=== PATIENT | male | born 1955 | race Caucasian/White ===

== ENCOUNTER 2016-10-27 17:01 | Emergency (ER) | payer MEDICAID, OTHER ==
[2016-10-27] MEDS ORDERED: Sodium Chloride 0.9% 10 ML Syringe FLUSH PRN (17:26)
[2016-10-27] MEDS ORDERED: Sodium Chloride 0.9% 1,000 ML IV SCH (17:30)
--- NOTE | 2016-10-27 17:32 | EDM.PDOC ---
ED HPI GENERAL MEDICAL PROBLEM - General Chief Complaint: Chest Pain Stated Complaint: SOB Time Seen by Provider: 10/27/16 17:15 Source of Information: Reports: Patient History Limitations: Reports: No Limitations - History of Present Illness INITIAL COMMENTS - FREE TEXT/NARRATIVE: Pierce comes over from Dr Crawford office with a 24 hr hx of atypical lower anterior chest pains that have been slowly escalating today. Sxs began as a productive cough of green-yellow tinged sputa, with some chills last night, and sweats today. There is no yury SOB, palpitations, PND or PNA, GI upset or headaches. A chest x ray at the Clinic was interpreted as satisfactory. The 02 sat 92% prompted the ED visit for further evaluation. He has tried no meds. Chest Pain Score (Numeric/FACES): 4 - Related Data Allergies Allergy/AdvReac Type Severity Reaction Status Date / Time No Known Allergies Allergy Verified 10/27/16 17:10 Home Meds: Home Meds Aspirin [Adult Low Dose Aspirin EC] 81 mg PO DAILY 07/10/13 [History] Losartan Potassium 50 mg PO DAILY 07/10/13 [History] Azithromycin [Zithromax] 250 mg PO DAILY #5 tablet 10/27/16 [Rx] Carvedilol [Coreg] 1 tab PO DAILY 10/27/16 [History] Ibuprofen [Advil] 2 mg PO ASDIRECTED 10/27/16 [History] Nitroglycerin [Nitrostat] 1 tab SL ASDIRECTED 10/27/16 [History] Past Medical History Cardiovascular History: Reports: Hypertension Social & Family History - Tobacco Use Smoking Status *Q: Former Smoker Used Tobacco, but Quit: Yes Month Tobacco Last Used: 1975 - Caffeine Use Caffeine Use: Reports: Coffee - Alcohol Use Days Per Week of Alcohol Use: 6 Number of Drinks Per Day: 6 Total Drinks Per Week: 36 - Recreational Drug Use Recreational Drug Use: No ED ROS GENERAL - Review of Systems Review Of Systems: See Below Constitutional: Reports: No Symptoms, Chills, Night Sweats HEENT: Reports: No Symptoms Respiratory: Reports: Cough Cardiovascular: Reports: Chest Pain Endocrine: Reports: No Symptoms GI/Abdominal: Reports: No Symptoms : Reports: No Symptoms Musculoskeletal: Reports: No Symptoms Skin: Reports: No Symptoms Neurological: Reports: No Symptoms Psychiatric: Reports: No Symptoms Hematologic/Lymphatic: Reports: No Symptoms Immunologic: Reports: No Symptoms ED EXAM, GENERAL - Physical Exam Exam: See Below Exam Limited By: No Limitations General Appearance: Alert, WD/WN, No Apparent Distress, Anxious Eye Exam: Bilateral Eye: EOMI, PERRL Ears: Normal External Exam, Normal TMs Nose: Normal Inspection Throat/Mouth: Normal Inspection, Normal Lips, Normal Oropharynx, Normal Voice Head: Atraumatic, Normocephalic Neck: Normal Inspection, Supple, Non-Tender, Full Range of Motion Respiratory/Chest: No Respiratory Distress, Lungs Clear, Normal Breath Sounds, Other (chest tender at origin of both costal margins R>L) Cardiovascular: Normal Peripheral Pulses, Regular Rate, Rhythm, No Edema, No Murmur GI/Abdominal: Normal Bowel Sounds, Soft, Non-Tender, No Organomegaly, No Distention, No Mass (Male) Exam: No Hernia Back Exam: Normal Inspection Extremities: Normal Inspection, Normal Range of Motion, Non-Tender, No Pedal Edema Neurological: Alert, Oriented, CN II-XII Intact, Normal Cognition, Normal Gait, No Motor/Sensory Deficits Psychiatric: Normal Affect, Anxious Skin Exam: Warm, Dry Lymphatic: No Adenopathy Course - Vital Signs Text/Narrative:: Pierce continued some nonproductive coughing in the ED. His VS remained stable. His chest CT angio was negative for PE or pneumonia. Remaining labs were baseline, with D-dimer 464. Last Recorded V/S: Last Vital Signs Temp 37.1 C 10/27/16 17:13 Pulse 79 10/27/16 18:11 Resp 22 H 10/27/16 18:11 BP 145/84 H 10/27/16 18:11 Pulse Ox 92 L 10/27/16 18:11 - Orders/Labs/Meds Orders: Active Orders 24 hr Category Date Time Status EKG Documentation Completion [RC] ASDIRECTED Care 10/27/16 17:25 Active Ang Chest [CT] Stat Exams 10/27/16 17:24 Taken Sodium Chloride 0.9% [Normal Saline] 1,000 ml Med 10/27/16 17:30 Active IV ASDIRECTED Sodium Chloride 0.9% [Saline Flush] Med 10/27/16 17:26 Active 10 ml FLUSH ASDIRECTED PRN Peripheral IV Insertion Adult [OM.PC] Routine Oth 10/27/16 17:26 Ordered EKG 12 Lead [EK] Routine Ther 10/27/16 17:24 Ordered Medication Orders Sodium Chloride (Normal Saline) 1,000 mls @ 150 mls/hr IV ASDIRECTED SYLVIA Last Admin: 10/27/16 17:46 Dose: 150 mls/hr Sodium Chloride (Saline Flush) 10 ml FLUSH ASDIRECTED PRN PRN Reason: Keep Vein Open Labs: Laboratory Tests 10/27/16 10/27/16 10/27/16 Range/Units 17:40 17:40 17:40 WBC 5.7 (4.5-12.0) X10-3/uL RBC 4.91 (4.30-5.75) x10(6)uL Hgb 13.7 (11.5-15.5) g/dL Hct 41.0 (30.0-51.3) % MCV 83.6 (80-96) fL MCH 28.0 (27.7-33.6) pg MCHC 33.5 (32.2-35.4) g/dL RDW 13.5 (11.5-15.5) % Plt Count 175 (125-369) X10(3)uL MPV 7.9 (7.4-10.4) fL Add Manual Diff Yes Neutrophils % (Manual) 70 (46-82) % Band Neutrophils % 7 H (0-6) % Lymphocytes % (Manual) 15 (13-37) % Monocytes % (Manual) 8 (4-12) % D-Dimer, Quantitative 464 H (100-400) ng/mL Sodium 139 (135-145) mmol/L Potassium 3.9 (3.5-5.3) mmol/L Chloride 104 (100-110) mmol/L Carbon Dioxide 28 (23-29) mmol/L BUN 19 (8-23) mg/dL Creatinine 0.9 (0.6-1.3) mg/dL Est Cr Clr Drug Dosing 94.94 mL/min Estimated GFR (MDRD) > 60 (>60) BUN/Creatinine Ratio 21.1 H (9-20) Glucose 108 (80-116) mg/dL Calcium 9.0 (8.6-10.2) mg/dL Total Bilirubin 0.9 (0.1-1.3) mg/dL AST 20 (5-27) IU/L ALT 23 (14-26) IU/L Alkaline Phosphatase 86 (56-112) IU/L Troponin I (0.02-0.06) NG/ML Total Protein 8.7 H (6.0-8.0) g/dL Albumin 4.1 (3.2-4.6) g/dL Globulin 4.6 g/dL Albumin/Globulin Ratio 0.9 07/10/17 Range/Units 17:40 WBC (4.5-12.0) X10-3/uL RBC (4.30-5.75) x10(6)uL Hgb (11.5-15.5) g/dL Hct (30.0-51.3) % MCV (80-96) fL MCH (27.7-33.6) pg MCHC (32.2-35.4) g/dL RDW (11.5-15.5) % Plt Count (125-369) X10(3)uL MPV (7.4-10.4) fL Add Manual Diff Neutrophils % (Manual) (46-82) % Band Neutrophils % (0-6) % Lymphocytes % (Manual) (13-37) % Monocytes % (Manual) (4-12) % D-Dimer, Quantitative (100-400) ng/mL Sodium (135-145) mmol/L Potassium (3.5-5.3) mmol/L Chloride (100-110) mmol/L Carbon Dioxide (23-29) mmol/L BUN (8-23) mg/dL Creatinine (0.6-1.3) mg/dL Est Cr Clr Drug Dosing mL/min Estimated GFR (MDRD) (>60) BUN/Creatinine Ratio (9-20) Glucose (80-116) mg/dL Calcium (8.6-10.2) mg/dL Total Bilirubin (0.1-1.3) mg/dL AST (5-27) IU/L ALT (14-26) IU/L Alkaline Phosphatase (56-112) IU/L Troponin I < 0.01 L (0.02-0.06) NG/ML Total Protein (6.0-8.0) g/dL Albumin (3.2-4.6) g/dL Globulin g/dL Albumin/Globulin Ratio Meds: Medications Generic Name Dose Route Start Last Admin Trade Name Freq PRN Reason Stop Dose Admin Sodium Chloride 1,000 mls @ 150 mls/hr 10/27/16 17:30 10/27/16 17:46 Normal Saline IV 150 mls/hr ASDIRECTED SYLVIA Administration Sodium Chloride 10 ml 10/27/16 17:26 Saline Flush FLUSH ASDIRECTED PRN Keep Vein Open Discontinued Medications Generic Name Dose Route Start Last Admin Trade Name Freq PRN Reason Stop Dose Admin Iopamidol 100 ml 10/27/16 18:03 10/27/16 18:27 Isovue-370 (76%) IV 10/27/16 18:04 83 ml . DIRECTED ONE Administration Departure - Departure Time of Disposition: 19:07 Disposition: Home, Self-Care 01 Condition: Good Clinical Impression: Bronchitis, Atypical chest pain - Discharge Information Prescriptions: Azithromycin [Zithromax] 250 mg PO DAILY #5 tablet Forms: ED Department Discharge - Problem List & Annotations (1) Atypical chest pain SNOMED Code(s): 778122631 Code(s): R07.89 - OTHER CHEST PAIN Status: Acute Current Visit: Yes Annotation/Comment:: Manage chest wall pain with NSAIDs as tolerated. (2) Bronchitis SNOMED Code(s): 38523429 Code(s): J40 - BRONCHITIS, NOT SPECIFIED ACUTE OR CHRONIC Status: Acute Current Visit: Yes Annotation/Comment:: I dispensed a Z Ranulfo taken as directed for probable bronchitis, advised cough med of choice, hydration, and follow up if needed. - Problem List Review Problem List Initiated/Reviewed/Updated: Yes - My Orders Last 24 Hours: My Active Orders 10/27/16 17:24 Ang Chest [CT] Stat EKG 12 Lead [EK] Routine 10/27/16 17:25 EKG Documentation Completion [RC] ASDIRECTED 10/27/16 17:26 Sodium Chloride 0.9% [Saline Flush] 10 ml FLUSH ASDIRECTED PRN Peripheral IV Insertion Adult [OM.PC] Routine 10/27/16 17:30 Sodium Chloride 0.9% [Normal Saline] 1,000 ml IV ASDIRECTED - Assessment/Plan Last 24 Hours: My Active Orders 10/27/16 17:24 Ang Chest [CT] Stat EKG 12 Lead [EK] Routine 10/27/16 17:25 EKG Documentation Completion [RC] ASDIRECTED 10/27/16 17:26 Sodium Chloride 0.9% [Saline Flush] 10 ml FLUSH ASDIRECTED PRN Peripheral IV Insertion Adult [OM.PC] Routine 10/27/16 17:30 Sodium Chloride 0.9% [Normal Saline] 1,000 ml IV ASDIRECTED Plan: Follow up with PCP if needed.
[2016-10-27] MEDS ORDERED: Iopamidol 755 Mg/ML 100 ML Bottle IV ONE (18:03)
[2016-10-27] MEDS ORDERED: Azithromycin 250 MG Tab PO ONE (19:05)
[2016-10-27 19:36] VITALS: BP 168/88
--- NOTE | 2016-10-28 10:49 | CT ---
INDICATION: Cough, atypical chest pain, no shortness of breath, D-dimer 464. COMPUTERIZED TOMOGRAPHY ANGIOGRAPHY OF THE CHEST FOR PULMONARY ARTERIES: Spiral 1.25-mm axial sections were obtained through the chest with 83 mL Isovue- 370 at 3.3 mL per second, with sagittal and coronal reconstructions, 2016. No comparison study was available. Total Exam DLP = 1078.01 mGy-cm. A definite active infiltrate or effusion was not identified. There may be some mild bronchiectasis. No evidence of pulmonary emboli could be identified. A mild degree of mediastinal lymphadenopathy is noted which is nonspecific. Calcifications are noted in brachiocephalic vessels and the aorta. The heart appears somewhat enlarged. The adrenal glands appear to be essentially normal. Renal fascial thickening is noted, suggesting a mild degree of renal cortical scarring. No gallstones are demonstrated. The pancreas has a post surgical appearance, suggesting resection of the tail of the pancreas. This should be correlated clinically. It may represent a normal variant. IMPRESSION: 1. No evidence of pulmonary emboli. 2. No definite acute process in the chest. 3. ASHD/ASD. 4. Renal cortical scarring of mild degree. 5. Unusual appearance of the tail of the pancreas may be post surgical. Report was called to Dr. Wen at 1904 hours, 10/27/2016. [facility]
== END 2016-10-27 19:30 | disposition home or self-care (01) ==
LOC: FB.ED 17:01
DX: J40 Bronchitis, not specified as acute or chronic (principal); R07.89 Other chest pain; Z79.82 Long term (current) use of aspirin; Z79.899 Other long term (current) drug therapy; Z87.891 Personal history of nicotine dependence
CPT/HCPCS: 36415; 71275; 80053; 84484; 85025; 85379; 93005; 96360; 99285; A9270; J7040; Q9967

== ENCOUNTER 2017-02-17 09:59 | Inpatient (IN) | payer MEDICAID ==
[2017-02-17] MEDS ORDERED: Sodium Chloride 0.9% 10 ML Syringe FLUSH PRN (10:08)
[2017-02-17] MEDS ORDERED: HYDROmorphone 2 MG/ML SDV IVPUSH STA (10:14)
[2017-02-17] MEDS ORDERED: Piperacillin/Tazobactam 3.375 GM in Sodium Chloride 0.9% 50 ML IV SCH ×2 (10:15→17:00)
[2017-02-17] MEDS ORDERED: Sodium Chloride 0.9% 1,000 ML IV SCH (10:15)
[2017-02-17] MEDS ORDERED: Piperacillin/Tazobactam 3.375 GM in Sodium Chloride 0.9% 50 ML IV STA (10:16)
[2017-02-17] MEDS ORDERED: Iopamidol 755 MG/ML 150 ML Bottle IV ONE (11:08)
--- NOTE | 2017-02-17 12:16 | EDM.PDOC ---
ED HPI GENERAL MEDICAL PROBLEM - General Chief Complaint: Abdominal Pain Stated Complaint: LOWER RT ABDOMINAL PAIN Time Seen by Provider: 02/17/17 09:59 Source of Information: Reports: Patient, Family History Limitations: Reports: No Limitations - History of Present Illness INITIAL COMMENTS - FREE TEXT/NARRATIVE: 61 years old w m s/p L ankle surgery, came to the ed with his family, by PC wheelchair, due to sudden onset of right lower quadrant abd. pain at 3 am and agian at 7.30 am. No trauma. No N/V/D no dizziness. Pain is better at rest in supine position. No F/C/N/V. Pain is localized at his RLQ of abdomen. No other acute medical issues. BP 189/102 pulse 85 temp 37.5 RR 20 Pulse ox 96 Onset: Today Onset Date: 02/17/17 Onset Time: 09:00 Duration: Minutes: Location: Reports: Abdomen (RLQ of abdomen with rebound) Front/Back Body Image: 1 - RLQ of abdomen Quality: Reports: Burning, Dull, Stabbing, Throbbing Severity: Moderate Improves with: Reports: Rest Worsens with: Reports: Movement Context: Reports: Other (Sudden onset of RLQ abd. pain) Associated Symptoms: Reports: Loss of Appetite (epigastric tenderness) Right Lower Abdomen Pain Score (Numeric/FACES): 10 - Related Data Allergies Allergy/AdvReac Type Severity Reaction Status Date / Time No Known Allergies Allergy Verified 10/27/16 17:10 Home Meds: Home Meds Aspirin [Adult Low Dose Aspirin EC] 81 mg PO DAILY 07/10/13 [History] Losartan Potassium 50 mg PO DAILY 07/10/13 [History] Carvedilol [Coreg] 1 tab PO DAILY 10/27/16 [History] Ibuprofen [Advil] 400 mg PO ASDIRECTED 10/27/16 [History] Nitroglycerin [Nitrostat] 1 tab SL ASDIRECTED 10/27/16 [History] Past Medical History Cardiovascular History: Reports: Hypertension Social & Family History - Tobacco Use Smoking Status *Q: Former Smoker Used Tobacco, but Quit: Yes Month Tobacco Last Used: 1976 - Caffeine Use Caffeine Use: Reports: Coffee - Alcohol Use Days Per Week of Alcohol Use: 6 Number of Drinks Per Day: 6 Total Drinks Per Week: 36 - Recreational Drug Use Recreational Drug Use: No ED ROS GENERAL - Review of Systems Review Of Systems: See Below Constitutional: Reports: No Symptoms HEENT: Reports: No Symptoms Respiratory: Reports: No Symptoms Cardiovascular: Reports: No Symptoms Endocrine: Reports: No Symptoms GI/Abdominal: Reports: Abdominal Pain (RLQ abd. pain, epigastric pain) : Reports: No Symptoms Musculoskeletal: Reports: No Symptoms Skin: Reports: No Symptoms Neurological: Reports: No Symptoms Psychiatric: Reports: No Symptoms Hematologic/Lymphatic: Reports: No Symptoms Immunologic: Reports: No Symptoms ED EXAM, GI/ABD - Physical Exam Exam: See Below Exam Limited By: No Limitations General Appearance: Alert, WD/WN, Moderate Distress Eyes: Bilateral: Normal Appearance Ears: Normal External Exam Nose: Normal Inspection, Normal Mucosa Throat/Mouth: Normal Inspection, Normal Lips Head: Atraumatic, Normocephalic Neck: Normal Inspection, Supple, Non-Tender Respiratory/Chest: No Respiratory Distress, Lungs Clear, Normal Breath Sounds Cardiovascular: Normal Peripheral Pulses, Regular Rate, Rhythm, No Edema, No Gallop, No JVD, No Murmur GI/Abdominal Exam: No Organomegaly, No Distention, Tender (RLQ of abdomen, epigasric tenderness), Abnormal Bowel Sounds (Male) Exam: No Hernia Rectal (Males) Exam: Deferred Back Exam: Normal Inspection, Full Range of Motion Extremities: Normal Inspection, Normal Range of Motion Neurological: Alert, Oriented, CN II-XII Intact, Normal Cognition, No Motor/ Sensory Deficits, Other (came by Wheelchair) Psychiatric: Normal Affect, Normal Mood Skin Exam: Warm, Dry, Intact, Normal Color, No Rash Lymphatic: No Adenopathy Course - Vital Signs Text/Narrative:: 61 years old w m s/p L ankle surgery, came to the ed with his family, by PC wheelchair, due to sudden onset of right lower quadrant abd. pain at 3 am and agian at 7.30 am. No trauma. No N/V/D no dizziness. Pain is better at rest in supine position. No F/C/N/V. Pain is localized at his RLQ of abdomen. No other acute medical issues. BP 189/102 pulse 85 temp 37.5 RR 20 Pulse ox 96 last food intake 9 am PE: WNWD W F with RLQ abd > epigastric tenderness Labs: INR 1.08 WBC 10.3 HGB 14.8 Na 138 K 3.8 GFR > 60 BUN 15 Cr. 0.9 Glc 126 Imaging: Acute appy Impression: Acute appy, Gastritis Tx: Zosyn, Dilaudid 12.14. pm Consultation Dr. Wood, Surgeon: Will see the Pt in the ED, surgery planned for 2.[address] Wood took over the care. Last Recorded V/S: Last Vital Signs Temp 38.2 C H 02/17/17 14:39 Pulse 91 02/17/17 14:39 Resp 20 02/17/17 14:05 BP 157/82 H 02/17/17 14:39 Pulse Ox 94 L 02/17/17 14:39 - Orders/Labs/Meds Orders: Active Orders 24 hr Category Date Time Status Abdomen Pelvis w Cont [CT] Stat Exams 02/17/17 10:06 Taken CXR [Chest 1V Frontal] [CR] Routine Exams 02/17/17 14:30 Ordered Sodium Chloride 0.9% [Normal Saline] 1,000 ml Med 02/17/17 10:15 Active IV ASDIRECTED Sodium Chloride 0.9% [Saline Flush] Med 02/17/17 10:08 Active 10 ml FLUSH ASDIRECTED PRN Peripheral IV Insertion Adult [OM.PC] Routine Oth 02/17/17 10:08 Ordered EKG 12 Lead [EK] Routine Ther 02/17/17 13:20 Ordered Medication Orders Sodium Chloride (Normal Saline) 1,000 mls @ 125 mls/hr IV ASDIRECTED SYLVIA Last Infusion: 02/17/17 14:03 Dose: 125 mls/hr Admin: 02/17/17 11:05 Dose: 125 mls/hr Sodium Chloride (Saline Flush) 10 ml FLUSH ASDIRECTED PRN PRN Reason: Keep Vein Open Labs: Laboratory Tests 02/17/17 02/17/17 02/17/17 Range/Units 10: 10: 10:17 WBC 10.8 (4.5-12.0) X10-3/uL RBC 5.20 (4.30-5.75) x10(6)uL Hgb 14.3 (11.5-15.5) g/dL Hct 43.1 (30.0-51.3) % MCV 82.8 (80-96) fL MCH 27.5 L (27.7-33.6) pg MCHC 33.2 (32.2-35.4) g/dL RDW 14.5 (11.5-15.5) % Plt Count 177 (125-369) X10(3)uL MPV 8.4 (7.4-10.4) fL Neut % (Auto) 79.9 (46-82) % Lymph % (Auto) 11.4 L (13-37) % Fleming % (Auto) 6.2 (4-12) % Eos % (Auto) 1 (1.0-5.0) % Baso % (Auto) 2 (0-2) % Neut # (Auto) 8.6 H (1.6-8.3) # Lymph # (Auto) 1.2 (0.6-5.0) # Fleming # (Auto) 0.7 (0.0-1.3) # Eos # (Auto) 0.1 (0.0-0.8) # Baso # (Auto) 0.2 (0.0-0.2) # PT 10.9 (8.7-11.1) INR 1.08 (0.89-1.13) Sodium 137 (135-145) mmol/L Potassium 3.8 (3.5-5.3) mmol/L Chloride 101 (100-110) mmol/L Carbon Dioxide 29 (23-29) mmol/L BUN 15 (8-23) mg/dL Creatinine 0.9 (0.6-1.3) mg/dL Est Cr Clr Drug Dosing TNP Estimated GFR (MDRD) > 60 (>60) BUN/Creatinine Ratio 16.7 (9-20) Glucose 139 H (80-116) mg/dL Calcium 8.9 (8.6-10.2) mg/dL Total Bilirubin 1.5 H (0.1-1.3) mg/dL Direct Bilirubin 0.2 (0.1-0.2) mg/dL AST 18 (5-27) IU/L ALT 23 (14-26) IU/L Alkaline Phosphatase 81 (56-112) IU/L NT-Pro-B Natriuret Pep 113 (5-125) pg/mL Total Protein 7.7 (6.0-8.0) g/dL Albumin 3.8 (3.2-4.6) g/dL Amylase 26 L (28-100) U/L Urine Color (YELLOW) Urine Appearance (CLEAR) Urine pH (5.0-6.5) Ur Specific Randolph (1.010-1.025) Urine Protein (NEGATIVE) mg/dL Urine Glucose (UA) (NEGATIVE) mg/dL Urine Ketones (NEGATIVE) mg/dL Urine Occult Blood (NEGATIVE) Urine Nitrite (NEGATIVE) Urine Bilirubin (NEGATIVE) Urine Urobilinogen (NEGATIVE) mg/dL Ur Leukocyte Esterase (NEGATIVE) Urine RBC (0) Urine WBC (0) Ur Squamous Epith Cells (NS,R,O) Urine Bacteria (NS) 02/17/17 Range/Units 13:00 WBC (4.5-12.0) X10-3/uL RBC (4.30-5.75) x10(6)uL Hgb (11.5-15.5) g/dL Hct (30.0-51.3) % MCV (80-96) fL MCH (27.7-33.6) pg MCHC (32.2-35.4) g/dL RDW (11.5-15.5) % Plt Count (125-369) X10(3)uL MPV (7.4-10.4) fL Neut % (Auto) (46-82) % Lymph % (Auto) (13-37) % Fleming % (Auto) (4-12) % Eos % (Auto) (1.0-5.0) % Baso % (Auto) (0-2) % Neut # (Auto) (1.6-8.3) # Lymph # (Auto) (0.6-5.0) # Fleming # (Auto) (0.0-1.3) # Eos # (Auto) (0.0-0.8) # Baso # (Auto) (0.0-0.2) # PT (8.7-11.1) INR (0.89-1.13) Sodium (135-145) mmol/L Potassium (3.5-5.3) mmol/L Chloride (100-110) mmol/L Carbon Dioxide (23-29) mmol/L BUN (8-23) mg/dL Creatinine (0.6-1.3) mg/dL Est Cr Clr Drug Dosing Estimated GFR (MDRD) (>60) BUN/Creatinine Ratio (9-20) Glucose (80-116) mg/dL Calcium (8.6-10.2) mg/dL Total Bilirubin (0.1-1.3) mg/dL Direct Bilirubin (0.1-0.2) mg/dL AST (5-27) IU/L ALT (14-26) IU/L Alkaline Phosphatase (56-112) IU/L NT-Pro-B Natriuret Pep (5-125) pg/mL Total Protein (6.0-8.0) g/dL Albumin (3.2-4.6) g/dL Amylase (28-100) U/L Urine Color Yellow (YELLOW) Urine Appearance Clear (CLEAR) Urine pH 5.0 (5.0-6.5) Ur Specific Randolph 1.010 (1.010-1.025) Urine Protein Negative (NEGATIVE) mg/dL Urine Glucose (UA) Normal (NEGATIVE) mg/dL Urine Ketones Negative (NEGATIVE) mg/dL Urine Occult Blood Negative (NEGATIVE) Urine Nitrite Negative (NEGATIVE) Urine Bilirubin Negative (NEGATIVE) Urine Urobilinogen Normal (NEGATIVE) mg/dL Ur Leukocyte Esterase Negative (NEGATIVE) Urine RBC 0-5 (0) Urine WBC 0-5 (0) Ur Squamous Epith Cells Few H (NS,R,O) Urine Bacteria Few H (NS) Meds: Medications Generic Name Dose Route Start Last Admin Trade Name Freq PRN Reason Stop Dose Admin Sodium Chloride 1,000 mls @ 125 mls/hr 02/17/17 10:15 02/17/17 14:03 Normal Saline IV 125 mls/hr ASDIRECTED SYLVIA Infusion Sodium Chloride 10 ml 02/17/17 10:08 Saline Flush FLUSH ASDIRECTED PRN Keep Vein Open Discontinued Medications Generic Name Dose Route Start Last Admin Trade Name Freq PRN Reason Stop Dose Admin Hydromorphone HCl 1 mg 02/17/17 10:14 02/17/17 11:06 Dilaudid IVPUSH 02/17/17 10:15 1 mg ONETIME STA Administration Piperacillin Sod/Tazobactam 50 mls @ 100 mls/hr 02/17/17 10:15 Sod 3.375 gm/ Sodium Chloride IV Q6H SYLVIA Piperacillin Sod/Tazobactam 50 mls @ 100 mls/hr 02/17/17 10:16 02/17/17 11:44 Sod 3.375 gm/ Sodium Chloride IV 02/17/17 10:45 100 mls/hr Q6H STA Administration Cefoxitin Sodium 2 gm/ Sodium 100 mls @ 200 mls/hr 02/17/17 12:48 02/17/17 13 :27 Chloride IV 02/17/17 13:17 200 mls/hr ONETIME ONE Administration Iopamidol 150 ml 02/17/17 11:08 02/17/17 11:33 Isovue-370 (76%) IV 02/17/17 11:09 130 ml ONETIME ONE Administration Departure - Departure Time of Disposition: 14:00 Disposition: Refer to Observation Condition: Fair Clinical Impression: Acute appendicitis Qualifiers: Acute appendicitis type: unspecified acute appendicitis type Qualified Code(s) : K35.80 - Unspecified acute appendicitis - Discharge Information - My Orders Last 24 Hours: My Active Orders 02/17/17 10:06 Abdomen Pelvis w Cont [CT] Stat 02/17/17 10:08 Sodium Chloride 0.9% [Saline Flush] 10 ml FLUSH ASDIRECTED PRN Peripheral IV Insertion Adult [OM.PC] Routine 02/17/17 10:15 Sodium Chloride 0.9% [Normal Saline] 1,000 ml IV ASDIRECTED 02/17/17 14:30 CXR [Chest 1V Frontal] [CR] Routine - Assessment/Plan Last 24 Hours: My Active Orders 02/17/17 10:06 Abdomen Pelvis w Cont [CT] Stat 02/17/17 10:08 Sodium Chloride 0.9% [Saline Flush] 10 ml FLUSH ASDIRECTED PRN Peripheral IV Insertion Adult [OM.PC] Routine 02/17/17 10:15 Sodium Chloride 0.9% [Normal Saline] 1,000 ml IV ASDIRECTED 02/17/17 14:30 CXR [Chest 1V Frontal] [CR] Routine
[2017-02-17] MEDS ORDERED: cefOXitin 2 GM in Sodium Chloride 0.9% 100 ML IV ONE (12:48)
--- NOTE | 2017-02-17 12:48 | PCM.HP ---
H&P History of Present Illness - General Date of Service: 02/17/17 Source of Information: Patient History Limitations: Reports: No Limitations - History of Present Illness Onset of Symptoms: Reports: Today Duration of Symptoms: Reports: Hour(s): (9) Location: Reports: Abdomen Quality: Reports: Pressure, Sharp Severity: Moderate Improves with: Reports: Other (much better after Dilaudid) Worsens with: Reports: Movement Associated Symptoms: Reports: No Other Symptoms. Denies: Nausea/Vomiting - Related Data Allergies/Adverse Reactions: Allergies Allergy/AdvReac Type Severity Reaction Status Date / Time No Known Allergies Allergy Verified 10/27/16 17:10 Home Medications: Home Meds Aspirin [Adult Low Dose Aspirin EC] 81 mg PO DAILY 07/10/13 [History] Losartan Potassium 50 mg PO DAILY 07/10/13 [History] Carvedilol [Coreg] 1 tab PO DAILY 10/27/16 [History] Ibuprofen [Advil] 400 mg PO ASDIRECTED 10/27/16 [History] Nitroglycerin [Nitrostat] 1 tab SL ASDIRECTED 10/27/16 [History] Past Medical History Cardiovascular History: Reports: Hypertension Other Musculoskeletal History: Back Surgery Social & Family History - Tobacco Use Smoking Status *Q: Former Smoker Used Tobacco, but Quit: Yes Month Tobacco Last Used: 1975 - Caffeine Use Caffeine Use: Reports: Coffee - Alcohol Use Days Per Week of Alcohol Use: 6 Number of Drinks Per Day: 6 Total Drinks Per Week: 36 - Recreational Drug Use Recreational Drug Use: No H&P Review of Systems - Review of Systems: Review Of Systems: See Below General: Denies: Fever, Chills HEENT: Reports: No Symptoms Pulmonary: Reports: No Symptoms Cardiovascular: Reports: No Symptoms Gastrointestinal: Reports: Abdominal Pain Exam - Exam Exam: See Below - Exam General: Alert, Oriented Lungs: Clear to Auscultation, Normal Respiratory Effort Cardiovascular: Regular Rate, Regular Rhythm GI/Abdominal Exam: Soft, Tender (in RLQ), Hernia (Umbilical) - Patient Data Lab Results Last 24 hrs: Laboratory Results - last 24 hr 02/17/17 02/17/17 02/17/17 Range/Units 10: 10: 10: WBC 10.8 (4.5-12.0) X10-3/uL RBC 5.20 (4.30-5.75) x10(6)uL Hgb 14.3 (11.5-15.5) g/dL Hct 43.1 (30.0-51.3) % MCV 82.8 (80-96) fL MCH 27.5 L (27.7-33.6) pg MCHC 33.2 (32.2-35.4) g/dL RDW 14.5 (11.5-15.5) % Plt Count 177 (125-369) X10(3)uL MPV 8.4 (7.4-10.4) fL Neut % (Auto) 79.9 (46-82) % Lymph % (Auto) 11.4 L (13-37) % [place] % (Auto) 6.2 (4-12) % Eos % (Auto) 1 (1.0-5.0) % Baso % (Auto) 2 (0-2) % Neut # (Auto) 8.6 H (1.6-8.3) # Lymph # (Auto) 1.2 (0.6-5.0) # [place] # (Auto) 0.7 (0.0-1.3) # Eos # (Auto) 0.1 (0.0-0.8) # Baso # (Auto) 0.2 (0.0-0.2) # PT 10.9 (8.7-11.1) INR 1.08 (0.89-1.13) Sodium 137 (135-145) mmol/L Potassium 3.8 (3.5-5.3) mmol/L Chloride 101 (100-110) mmol/L Carbon Dioxide 29 (23-29) mmol/L BUN 15 (8-23) mg/dL Creatinine 0.9 (0.6-1.3) mg/dL Est Cr Clr Drug Dosing TNP Estimated GFR (MDRD) > 60 (>60) BUN/Creatinine Ratio 16.7 (9-20) Glucose 139 H (80-116) mg/dL Calcium 8.9 (8.6-10.2) mg/dL Total Bilirubin 1.5 H (0.1-1.3) mg/dL Direct Bilirubin 0.2 (0.1-0.2) mg/dL AST 18 (5-27) IU/L ALT 23 (14-26) IU/L Alkaline Phosphatase 81 (56-112) IU/L NT-Pro-B Natriuret Pep 113 (5-125) pg/mL Total Protein 7.7 (6.0-8.0) g/dL Albumin 3.8 (3.2-4.6) g/dL Amylase 26 L (28-100) U/L Result Diagrams: 02/17/17 10:17 02/17/17 10:17 Imaging Impressions Last 24 hrs: CT shows acute appendicitis *Q Meaningful Use (ADM) - VTE *Q VTE Criteria *Q: - Stroke *Q Stroke Criteria *Q: - AMI *Q AMI Criteria *Q: - Problem List (1) Appendicitis, acute SNOMED Code(s): 96486023 ICD Code: K35.80 - UNSPECIFIED ACUTE APPENDICITIS Status: Acute Current Visit: Yes Qualifiers: Acute appendicitis type: unspecified acute appendicitis type Qualified Code (s): K35.80 - Unspecified acute appendicitis Problem List Initiated/Reviewed/Updated: Yes Orders Last 24hrs: Active Orders 24 hr Category Date Time Status Abdomen Pelvis w Cont [CT] Stat Exams 02/17/17 10:06 Taken UA W/MICROSCOPIC [URIN] Stat Lab 02/17/17 10:06 Uncollected Sodium Chloride 0.9% [Normal Saline] 1,000 ml Med 02/17/17 10:15 Active IV ASDIRECTED Sodium Chloride 0.9% [Saline Flush] Med 02/17/17 10:08 Active 10 ml FLUSH ASDIRECTED PRN Peripheral IV Insertion Adult [OM.PC] Routine Oth 02/17/17 10:08 Ordered Medication Orders Sodium Chloride (Normal Saline) 1,000 mls @ 125 mls/hr IV ASDIRECTED [facility] Last Admin: 02/17/17 11:05 Dose: 125 mls/hr Sodium Chloride (Saline Flush) 10 ml FLUSH ASDIRECTED PRN PRN Reason: Keep Vein Open Assessment/Plan Comment:: Acute Appendicitis Umbilical Hernia Will proceed with lap appy and hernia repair. Discussed procedure, risks and complications. Consent obtained
[2017-02-17] MEDS ORDERED: Midazolam 1 MG/ML 2 ML SDV IV ONE (14:55)
[2017-02-17] MEDS ORDERED: Ondansetron 4 MG/2 ML SDV IVPUSH ONE (14:55)
[2017-02-17] MEDS ORDERED: Citric Acid/Sodium Citrate Solution 30 ML Cup PO ONE (14:55)
[2017-02-17] MEDS ORDERED: Propofol 200 MG/20 ML SDV IV ONE (14:55)
[2017-02-17] MEDS ORDERED: fentaNYL 100 MCG/2 ML SDV IV ONE (14:55)
[2017-02-17] MEDS ORDERED: Lactated Ringers 1,000 ML IV ONE (14:55)
[2017-02-17] MEDS ORDERED: Rocuronium Bromide 50 MG/5 ML Syringe IV ONE (14:55)
[2017-02-17] MEDS ORDERED: Ketorolac 15 MG/ML SDV IVPUSH ONE (14:55)
[2017-02-17] MEDS ORDERED: Succinylcholine 200 MG/10 ML MDV IV ONE (14:55)
[2017-02-17] MEDS ORDERED: Glycopyrrolate 0.2 MG/ML 5 ML MDV IV ONE (14:55)
[2017-02-17] MEDS ORDERED: Rocuronium 50 MG/5 ML Vial IV ONE (14:55)
[2017-02-17] MEDS ORDERED: HYDROmorphone 2 MG/ML SDV IV ONE (14:55)
[2017-02-17] MEDS ORDERED: Neostigmine Methylsulfate 10 MG/10 ML MDV IVPUSH ONE (14:55)
--- NOTE | 2017-02-17 16:46 | PCM.OPNOTE ---
- General Post-Op/Procedure Note Date of Surgery/Procedure: 02/17/17 Operative Procedure(s): Lap Appy Findings: Acute Appendicitis; perforated Pre Op Diagnosis: Acute Appendicitis. Umbilical Hernia Post-Op Diagnosis: Same Anesthesia Technique: General ET Tube Primary Surgeon: Noman Wood Anesthesia Provider: Jamie Gutierrez Pathology: Appendix EBL in mLs: 20 Complications: None Condition: Fair
[2017-02-17] MEDS ORDERED: Acetaminophen/HYDROcodone 325-7.5 MG Tab PO PRN (16:48)
[2017-02-17] MEDS ORDERED: Naloxone 0.4 MG/ML SDV IVPUSH PRN (16:57)
[2017-02-17] MEDS ORDERED: Albuterol 0.083% 2.5 MG/3 ML Neb Soln NEB PRN (16:57)
[2017-02-17] MEDS ORDERED: Lactated Ringers 1,000 ML IV SCH (17:00)
[2017-02-17] MEDS: Sodium Chloride 0.9% 250 ML IV SCH (18:30)
[2017-02-17] MEDS: Lactated Ringers 1,000 ML IV SCH (21:49)
[2017-02-17] MEDS: Morphine 2 MG/ML Syringe IVPUSH PRN (22:05)
--- NOTE | 2017-02-17 22:05 | OR ---
DATE OF OPERATION: 02/17/2017 SURGEON: Noman Wood MD PREOPERATIVE DIAGNOSES: 1. Acute appendicitis. 2. Umbilical hernia. POSTOPERATIVE DIAGNOSES: 1. Perforated appendicitis. 2. Umbilical hernia. PROCEDURE: 1. Laparoscopic appendectomy. 2. Umbilical hernia repair. ANESTHESIA: General. DESCRIPTION OF PROCEDURE: The patient was brought to the operating room, where general endotracheal anesthesia was administered. His abdomen was prepped with ChloraPrep and draped sterilely. An infraumbilical incision was made and hernia sac dissected from the overlying skin and cleared off down to the level of the fascia. The fascia was cleared circumferentially for the hernia repair at the end. Defect measures 1.5 cm in diameter and no hernia contents were present in it when the sac was opened. The Maurice cannulator was introduced and pneumoperitoneum obtained. The 5-mm ports were placed in the suprapubic position and also [place] between the umbilicus and pubis. A moderate amount of succus entericus fluid was present along the right gutter and omental adhesions to the bowel in the right lower quadrant with fibrinous exudate on them. This was suctioned and and the appendix visualized. The perforation was just past the base. The mesoappendix was thickened and taken down with 3 applications of the Endo-OMAR 2.5 mm stapler. The base of the cecum was somewhat thickened and an Endo-OMAR 60 stapler with a 3.5 mm load was used to transect the cecum. The appendix was placed in an Endopouch and brought out through the umbilical incision. The initial fluid had been sent for culture at the beginning of the case. The right lower quadrant and pelvis were thoroughly irrigated with 1 L of saline and return was clear and hemostasis assured. Ports were removed under direct vision and remained hemostatic. Umbilical hernia defect was closed with #1 Prolene far-near, near-far interrupted sutures. The umbilical skin was secured to the fascia and the skin closed with 4-0 Vicryl subcuticular sutures. Benzoin and Steri-Strips were placed and Band-Aids applied. The patient tolerated the procedure well. ESTIMATED BLOOD LOSS: 20 mL. He returned to postanesthesia in stable condition. /[id number] CUONG/ELISSA
[2017-02-18] MEDS: Morphine 2 MG/ML Syringe IVPUSH PRN ×3 (00:37→06:45)
[2017-02-18] MEDS: Piperacillin/Tazobactam 3.375 GM in Sodium Chloride 0.9% 50 ML IV SCH ×5 (00:40→23:00)
[2017-02-18] MEDS: Lactated Ringers 1,000 ML IV SCH ×3 (05:32→22:48)
--- NOTE | 2017-02-18 08:47 | CR ---
INDICATION: Epigastric pain. CHEST: A single AP upright view of the chest was obtained 02/17/2017. No comparisons were available. Poor inspiration emphasizes markings and heart size. The heart could be enlarged. The aorta is tortuous. Pulmonary vasculature is more prominent than expected and could represent a mild or early CHF. When clinically possible, full inspiration PA and lateral views of the chest may be helpful. No consolidating pneumonia or effusion was identified. MTDD
[2017-02-18] MEDS: Ketorolac 30 MG/ML SDV IVPUSH SCH ×3 (09:10→19:51)
[2017-02-18] MEDS: Enoxaparin 40 MG/0.4 ML Syringe SUBCUT SCH (09:11)
--- NOTE | 2017-02-18 13:42 | PCM.SURGPN ---
- General Info Date of Service: 02/18/17 POD#: 1 Functional Status: Reports: Pain Controlled, Ambulating, Urinating - Review of Systems General: Reports: No Symptoms Pulmonary: Reports: No Symptoms Cardiovascular: Reports: No Symptoms Gastrointestinal: Denies: Abdominal Pain (much better after Toradol started this am) Genitourinary: Reports: No Symptoms - Patient Data Vitals - Most Recent: Last Vital Signs Temp 98.1 F 02/18/17 07:45 Pulse 78 02/18/17 11:13 Resp 16 02/18/17 07:45 BP 131/75 02/18/17 07:45 Pulse Ox 93 L 02/18/17 11:13 Weight - Most Recent: 133.492 kg I&O - Last 24 Hours: Intake & Output 02/17/17 02/18/17 02/18/17 22:59 06:59 14:59 Intake Total 584 1179 Output Total 125 350 Balance 584 1054 -350 Lab Results Last 24 Hrs: Laboratory Results - last 24 hr 02/18/17 Range/Units 06:25 WBC 10.5 (4.5-12.0) X10-3/uL RBC 4.37 (4.30-5.75) x10(6)uL Hgb 12.4 (11.5-15.5) g/dL Hct 36.1 (30.0-51.3) % MCV 82.6 (80-96) fL MCH 28.3 (27.7-33.6) pg MCHC 34.3 (32.2-35.4) g/dL RDW 14.8 (11.5-15.5) % Plt Count 154 (125-369) X10(3)uL MPV 8.2 (7.4-10.4) fL Add Manual Diff Yes Neutrophils % (Manual) 78 (46-82) % Band Neutrophils % 2 (0-6) % Lymphocytes % (Manual) 13 (13-37) % Monocytes % (Manual) 7 (4-12) % Med Orders - Current: Current Medications Hydrocodone Bitart/Acetaminophen ([place] 325-7.5 Mg) 1 tab PO Q4H PRN PRN Reason: Pain (moderate 4-6) Albuterol (Proventil Neb Soln) 2.5 mg NEB ONETIME PRN PRN Reason: Wheezing Enoxaparin Sodium (Lovenox) 40 mg SUBCUT DAILY [facility] Last Admin: 02/18/17 09:11 Dose: 40 mg Sodium Chloride (Normal Saline) 1,000 mls @ 125 mls/hr IV ASDIRECTED [facility] Last Infusion: 02/17/17 14:03 Dose: 125 mls/hr Lactated Ringer's (Ringers, Lactated) 1,000 mls @ 125 mls/hr IV ASDIRECTED [facility] Last Admin: 02/18/17 05:32 Dose: 150 mls/hr Sodium Chloride (Normal Saline) 250 mls @ 100 mls/hr IV ASDIRECTED [facility] Last Admin: 02/17/17 18:30 Dose: 100 mls/hr Piperacillin Sod/Tazobactam (Sod 3.375 gm/ Sodium Chloride) 50 mls @ 100 mls/ hr IV Q6H [facility] Last Admin: 02/18/17 12:01 Dose: 100 mls/hr Ketorolac Tromethamine (Toradol) 30 mg IVPUSH Q6H [facility] Stop: 02/23/17 07:53 Last Admin: 02/18/17 09:10 Dose: 30 mg Morphine Sulfate (Morphine) 2 mg IVPUSH Q1H PRN PRN Reason: Pain (severe 7-10) Last Admin: 02/18/17 06:45 Dose: 2 mg Naloxone HCl (Narcan) 0.2 mg IVPUSH Q1M PRN PRN Reason: Respiratory Depression Sodium Chloride (Saline Flush) 10 ml FLUSH ASDIRECTED PRN PRN Reason: Keep Vein Open Discontinued Medications Hydromorphone HCl (Dilaudid) 1 mg IVPUSH ONETIME STA Stop: 02/17/17 10:15 Last Admin: 02/17/17 11:06 Dose: 1 mg Piperacillin Sod/Tazobactam (Sod 3.375 gm/ Sodium Chloride) 50 mls @ 100 mls/ hr IV Q6H [facility] Last Admin: 02/17/17 21:48 Dose: Not Given Piperacillin Sod/Tazobactam (Sod 3.375 gm/ Sodium Chloride) 50 mls @ 100 mls/ hr IV Q6H [facility] Stop: 02/17/17 10:45 Last Admin: 02/17/17 11:44 Dose: 100 mls/hr Cefoxitin Sodium 2 gm/ Sodium (Chloride) 100 mls @ 200 mls/hr IV ONETIME ONE Stop: 02/17/17 13:17 Last Admin: 02/17/17 13:27 Dose: 200 mls/hr Piperacillin Sod/Tazobactam (Sod 3.375 gm/ Sodium Chloride) 50 mls @ 100 mls/ hr IV Q6H [facility] Stop: 02/22/17 17:01 Last Admin: 02/17/17 18:16 Dose: 100 mls/hr Lactated Ringer's (Ringers, Lactated) 1,000 mls @ 0 mls/hr IV ASDIRECTED [facility] PRN Reason: KVO Iopamidol (Isovue-370 (76%)) 150 ml IV ONETIME ONE Stop: 02/17/17 11:09 Last Admin: 02/17/17 11:33 Dose: 130 ml Piperacillin Sod/Tazobactam Sod (Zosyn) Confirm Administered Dose 3.375 gm .ROUTE .STK-MED ONE Stop: 02/18/17 05:39 Last Admin: 02/18/17 05:54 Dose: Not Given - Exam Wound/Incisions: Healing Well, Dressing Dry and Intact General: Alert, Oriented GI/Abdominal Exam: Soft, Non-Tender - Problem List & Annotations (1) Appendicitis, acute SNOMED Code(s): 40592102 Code(s): K35.80 - UNSPECIFIED ACUTE APPENDICITIS Status: Acute Current Visit: Yes Qualifiers: Acute appendicitis type: unspecified acute appendicitis type Qualified Code (s): K35.80 - Unspecified acute appendicitis - Problem List Review Problem List Initiated/Reviewed/Updated: Yes - My Orders Last 24 Hours: Active Orders 24 hr Category Date Time Status Cooling Warming Measures [RC] ASDIRECTED Care 02/17/17 16:58 Active Notify Provider [RC] PRN Care 02/17/17 16:58 Active Oxygen Therapy [RC] ASDIRECTED Care 02/17/17 16:58 Active Albuterol [Proventil Neb Soln] Med 02/17/17 16:57 Active 2.5 mg NEB ONETIME PRN Ketorolac [Toradol] Med 02/18/17 08:00 Active 30 mg IVPUSH Q6H Naloxone [Narcan] Med 02/17/17 16:57 Active 0.2 mg IVPUSH Q1M PRN Piperacillin/Tazobactam [Zosyn] 3.375 gm Med 02/18/17 00:00 Active Sodium Chloride 0.9% [Normal Saline] 50 ml IV Q6H Sodium Chloride 0.9% [Normal Saline] 250 ml Med 02/17/17 18:30 Active IV ASDIRECTED Patient May [OM.PC] Click to Edit Ot 02/17/17 16:58 Ordered Medication Orders Hydrocodone Bitart/Acetaminophen ([place] 325-7.5 Mg) 1 tab PO Q4H PRN PRN Reason: Pain (moderate 4-6) Albuterol (Proventil Neb Soln) 2.5 mg NEB ONETIME PRN PRN Reason: Wheezing Enoxaparin Sodium (Lovenox) 40 mg SUBCUT DAILY [facility] Last Admin: 02/18/17 09:11 Dose: 40 mg Sodium Chloride (Normal Saline) 1,000 mls @ 125 mls/hr IV ASDIRECTED [facility] Last Infusion: 02/17/17 14:03 Dose: 125 mls/hr Admin: 02/17/17 11:05 Dose: 125 mls/hr Lactated Ringer's (Ringers, Lactated) 1,000 mls @ 125 mls/hr IV ASDIRECTED [facility] Last Admin: 02/18/17 05:32 Dose: 150 mls/hr Infusion: 02/18/17 04:30 Dose: 150 mls/hr Admin: 02/17/17 21:49 Dose: 150 mls/hr Sodium Chloride (Normal Saline) 250 mls @ 100 mls/hr IV ASDIRECTED [facility] Last Admin: 02/17/17 18:30 Dose: 100 mls/hr Piperacillin Sod/Tazobactam (Sod 3.375 gm/ Sodium Chloride) 50 mls @ 100 mls/ hr IV Q6H [facility] Last Admin: 02/18/17 12:01 Dose: 100 mls/hr Admin: 02/18/17 05:45 Dose: 100 mls/hr Admin: 02/18/17 00:40 Dose: 100 mls/hr Ketorolac Tromethamine (Toradol) 30 mg IVPUSH Q6H [facility] Stop: 02/23/17 07:53 Last Admin: 02/18/17 09:10 Dose: 30 mg Morphine Sulfate (Morphine) 2 mg IVPUSH Q1H PRN PRN Reason: Pain (severe 7-10) Last Admin: 02/18/17 06:45 Dose: 2 mg Admin: 02/18/17 03:30 Dose: 2 mg Admin: 02/18/17 00:37 Dose: 2 mg Admin: 02/17/17 22:05 Dose: 2 mg Naloxone HCl (Narcan) 0.2 mg IVPUSH Q1M PRN PRN Reason: Respiratory Depression Sodium Chloride (Saline Flush) 10 ml FLUSH ASDIRECTED PRN PRN Reason: Keep Vein Open - Assessment Assessment (Free Text/Narrative):: Doing well POD # 1 - Plan Plan (Free Text/Narrative):: Cont as is
[2017-02-18] MEDS: Sodium Chloride 0.9% 250 ML IV SCH (23:00)
[2017-02-19] MEDS: Ketorolac 30 MG/ML SDV IVPUSH SCH ×4 (01:29→19:43)
[2017-02-19] MEDS: Piperacillin/Tazobactam 3.375 GM in Sodium Chloride 0.9% 50 ML IV SCH ×3 (06:50→17:47)
[2017-02-19] MEDS ORDERED: Dextrose 5%-0.9% NaCl with KCl 1,000 ML IV SCH (07:15)
[2017-02-19] MEDS: Dextrose 5%-0.9% NaCl with KCl 1,000 ML IV SCH ×3 (08:25→17:05)
[2017-02-19] MEDS: Carvedilol 25 MG Tab PO SCH ×2 (08:30→20:34)
[2017-02-19] MEDS: Hydrochlorothiazide/Losartan 25-100 MG Tab PO SCH (09:15)
[2017-02-19] MEDS: Enoxaparin 40 MG/0.4 ML Syringe SUBCUT SCH (09:15)
[2017-02-19] MEDS: Morphine 2 MG/ML Syringe IVPUSH PRN (09:24)
--- NOTE | 2017-02-19 16:39 | PCM.SURGPN ---
- General Info Date of Service: 02/19/17 POD#: 2 Functional Status: Reports: Pain Controlled, Ambulating, Urinating - Review of Systems General: Reports: No Symptoms. Denies: Fever Pulmonary: Reports: No Symptoms Cardiovascular: Reports: No Symptoms Gastrointestinal: Reports: No Symptoms, Abdominal Pain (gassy and bloated), Flatus Genitourinary: Reports: No Symptoms - Patient Data Vitals - Most Recent: Last Vital Signs Temp 98.6 F 02/19/17 15:45 Pulse 72 02/19/17 15:45 Resp 16 02/19/17 15:45 BP 177/88 H 02/19/17 15:45 Pulse Ox 92 L 02/19/17 15:45 Weight - Most Recent: 133.492 kg I&O - Last 24 Hours: Intake & Output 02/19/17 02/19/17 02/19/17 06:59 14:59 22:59 Intake Total 1145 820 Output Total 300 325 Balance 845 495 Med Orders - Current: Current Medications Hydrocodone Bitart/Acetaminophen ([place] 325-7.5 Mg) 1 tab PO Q4H PRN PRN Reason: Pain (moderate 4-6) Albuterol (Proventil Neb Soln) 2.5 mg NEB ONETIME PRN PRN Reason: Wheezing Carvedilol (Coreg) 25 mg PO DAILY [facility] Last Admin: 02/19/17 08:30 Dose: 25 mg Carvedilol (Coreg) 50 mg PO BEDTIME [facility] Enoxaparin Sodium (Lovenox) 40 mg SUBCUT DAILY [facility] Last Admin: 02/19/17 09:15 Dose: 40 mg HCTZ/Losartan Potassium (Hyzaar 100-25 Mg) 0.5 tab PO DAILY [facility] Last Admin: 02/19/17 09:15 Dose: 0.5 tab Piperacillin Sod/Tazobactam (Sod 3.375 gm/ Sodium Chloride) 50 mls @ 100 mls/ hr IV Q6H [facility] Last Admin: 02/19/17 12:21 Dose: 100 mls/hr Potassium Chloride/Dextrose/Sod Cl (D5 Ns With 20 Meq Kcl) 1,000 mls @ 125 mls/ hr IV Q8H [facility] Last Admin: 02/19/17 08:25 Dose: 125 mls/hr Ketorolac Tromethamine (Toradol) 30 mg IVPUSH Q6H [facility] Stop: 02/23/17 07:53 Last Admin: 02/19/17 14:14 Dose: 30 mg Morphine Sulfate (Morphine) 2 mg IVPUSH Q1H PRN PRN Reason: Pain (severe 7-10) Last Admin: 02/19/17 09:24 Dose: 2 mg Naloxone HCl (Narcan) 0.2 mg IVPUSH Q1M PRN PRN Reason: Respiratory Depression Sodium Chloride (Saline Flush) 10 ml FLUSH ASDIRECTED PRN PRN Reason: Keep Vein Open Discontinued Medications Citric Acid/Sodium Citrate (Bicitra Solution) 30 ml PO .STK-MED ONE Stop: 02/17/17 14:56 Fentanyl (Sublimaze) 100 mcg IV .STK-MED ONE Stop: 02/17/17 14:56 Glycopyrrolate (Robinul) 0.8 mg IV .STK-MED ONE Stop: 02/17/17 14:56 Hydromorphone HCl (Dilaudid) 1 mg IVPUSH ONETIME STA Stop: 02/17/17 10:15 Last Admin: 02/17/17 11:06 Dose: 1 mg Hydromorphone HCl (Dilaudid) 2 mg IV .STK-MED ONE Stop: 02/17/17 14:56 Sodium Chloride (Normal Saline) 1,000 mls @ 125 mls/hr IV ASDIRECTED [facility] Last Infusion: 02/17/17 14:03 Dose: 125 mls/hr Piperacillin Sod/Tazobactam (Sod 3.375 gm/ Sodium Chloride) 50 mls @ 100 mls/ hr IV Q6H [facility] Last Admin: 02/17/17 21:48 Dose: Not Given Piperacillin Sod/Tazobactam (Sod 3.375 gm/ Sodium Chloride) 50 mls @ 100 mls/ hr IV Q6H [facility] Stop: 02/17/17 10:45 Last Admin: 02/17/17 11:44 Dose: 100 mls/hr Cefoxitin Sodium 2 gm/ Sodium (Chloride) 100 mls @ 200 mls/hr IV ONETIME ONE Stop: 02/17/17 13:17 Last Admin: 02/17/17 13:27 Dose: 200 mls/hr Lactated Ringer's (Ringers, Lactated) 1,000 mls @ 125 mls/hr IV ASDIRECTED [facility] Last Admin: 02/18/17 22:48 Dose: 125 mls/hr Piperacillin Sod/Tazobactam (Sod 3.375 gm/ Sodium Chloride) 50 mls @ 100 mls/ hr IV Q6H [facility] Stop: 02/22/17 17:01 Last Admin: 02/17/17 18:16 Dose: 100 mls/hr Lactated Ringer's (Ringers, Lactated) 1,000 mls @ 0 mls/hr IV ASDIRECTED [facility] PRN Reason: KVO Sodium Chloride (Normal Saline) 250 mls @ 100 mls/hr IV ASDIRECTED [facility] Last Admin: 02/18/17 23:00 Dose: 100 mls/hr Acetaminophen (Ofirmev) 100 mls @ as directed IV .STK-MED ONE Stop: 02/17/17 14:56 Lactated Ringer's (Ringers, Lactated) 1,000 mls @ as directed IV .STK-MED ONE Stop: 02/17/17 14:56 Potassium Chloride/Dextrose/Sod Cl (D5 Ns With 20 Meq Kcl) 1,000 mls @ 125 mls/ hr IV ASDIRECTED [facility] Iopamidol (Isovue-370 (76%)) 150 ml IV ONETIME ONE Stop: 02/17/17 11:09 Last Admin: 02/17/17 11:33 Dose: 130 ml Ketorolac Tromethamine (Toradol) 15 mg IVPUSH .STK-MED ONE Stop: 02/17/17 14:56 Midazolam HCl (Versed 1 Mg/Ml) 2 mg IV .STK-MED ONE Stop: 02/17/17 14:56 Neostigmine Methylsulfate (Neostigmine Methylsulfate) 5 mg IVPUSH .STK-MED ONE Stop: 02/17/17 14:56 Ondansetron HCl (Zofran) 4 mg IVPUSH .STK-MED ONE Stop: 02/17/17 14:56 Piperacillin Sod/Tazobactam Sod (Zosyn) Confirm Administered Dose 3.375 gm .ROUTE .STK-MED ONE Stop: 02/18/17 05:39 Last Admin: 02/18/17 05:54 Dose: Not Given Propofol (Diprivan 20 Ml) 200 mg IV .STK-MED ONE Stop: 02/17/17 14:56 Rocuronium [place] (Zemuron) 50 mg IV .STK-MED ONE Stop: 02/17/17 14:56 Rocuronium [place] (Rocuronium [place]) 60 mg IV .STK-MED ONE Stop: 02/17/17 14:56 Succinylcholine Chloride (Quelicin) 140 mg IV .STK-MED ONE Stop: 02/17/17 14:56 - Exam Wound/Incisions: Healing Well, Dressing Dry and Intact General: Alert, Oriented Lungs: Clear to Auscultation, Decreased Breath Sounds GI/Abdominal Exam: Soft, Non-Tender, Distended - Problem List & Annotations (1) Appendicitis, acute SNOMED Code(s): 11969275 Code(s): K35.80 - UNSPECIFIED ACUTE APPENDICITIS Status: Acute Current Visit: Yes Qualifiers: Acute appendicitis type: unspecified acute appendicitis type Qualified Code (s): K35.80 - Unspecified acute appendicitis - Problem List Review Problem List Initiated/Reviewed/Updated: Yes - My Orders Last 24 Hours: Active Orders 24 hr Category Date Time Status Carvedilol [Coreg] Med 02/19/17 09:00 Active 25 mg PO DAILY Carvedilol [Coreg] Med 02/19/17 21:00 Active 50 mg PO BEDTIME Dextrose 5%-0.9% NaCl with KCl [D5 NS with 20 mEq KCl] Med 02/19/17 08:00 Active 1,000 ml IV Q8H Hydrochlorothiazide/Losartan [Hyzaar 100-25 MG] Med 02/19/17 09:00 Active 0.5 tab PO DAILY Medication Orders Hydrocodone Bitart/Acetaminophen ([place] 325-7.5 Mg) 1 tab PO Q4H PRN PRN Reason: Pain (moderate 4-6) Albuterol (Proventil Neb Soln) 2.5 mg NEB ONETIME PRN PRN Reason: Wheezing Carvedilol (Coreg) 25 mg PO DAILY [facility] Last Admin: 02/19/17 08:30 Dose: 25 mg Carvedilol (Coreg) 50 mg PO BEDTIME [facility] Enoxaparin Sodium (Lovenox) 40 mg SUBCUT DAILY [facility] Last Admin: 02/19/17 09:15 Dose: 40 mg Admin: 02/18/17 09:11 Dose: 40 mg HCTZ/Losartan Potassium (Hyzaar 100-25 Mg) 0.5 tab PO DAILY [facility] Last Admin: 02/19/17 09:15 Dose: 0.5 tab Piperacillin Sod/Tazobactam (Sod 3.375 gm/ Sodium Chloride) 50 mls @ 100 mls/ hr IV Q6H [facility] Last Admin: 02/19/17 12:21 Dose: 100 mls/hr Admin: 02/19/17 06:50 Dose: 100 mls/hr Admin: 02/18/17 23:00 Dose: 100 mls/hr Admin: 02/18/17 17:46 Dose: 100 mls/hr Admin: 02/18/17 12:01 Dose: 100 mls/hr Admin: 02/18/17 05:45 Dose: 100 mls/hr Admin: 02/18/17 00:40 Dose: 100 mls/hr Potassium Chloride/Dextrose/Sod Cl (D5 Ns With 20 Meq Kcl) 1,000 mls @ 125 mls/ hr IV Q8H [facility] Last Admin: 02/19/17 08:25 Dose: 125 mls/hr Ketorolac Tromethamine (Toradol) 30 mg IVPUSH Q6H [facility] Stop: 02/23/17 07:53 Last Admin: 02/19/17 14:14 Dose: 30 mg Admin: 02/19/17 08:31 Dose: 30 mg Admin: 02/19/17 01:29 Dose: 30 mg Admin: 02/18/17 19:51 Dose: 30 mg Admin: 02/18/17 13:59 Dose: 30 mg Admin: 02/18/17 09:10 Dose: 30 mg Morphine Sulfate (Morphine) 2 mg IVPUSH Q1H PRN PRN Reason: Pain (severe 7-10) Last Admin: 02/19/17 09:24 Dose: 2 mg Admin: 02/18/17 06:45 Dose: 2 mg Admin: 02/18/17 03:30 Dose: 2 mg Admin: 02/18/17 00:37 Dose: 2 mg Admin: 02/17/17 22:05 Dose: 2 mg Naloxone HCl (Narcan) 0.2 mg IVPUSH Q1M PRN PRN Reason: Respiratory Depression Sodium Chloride (Saline Flush) 10 ml FLUSH ASDIRECTED PRN PRN Reason: Keep Vein Open - Assessment Assessment (Free Text/Narrative):: Doing well - Plan Plan (Free Text/Narrative):: Start liquids
[2017-02-20] MEDS: Piperacillin/Tazobactam 3.375 GM in Sodium Chloride 0.9% 50 ML IV SCH ×5 (00:15→23:58)
[2017-02-20] MEDS: Ketorolac 30 MG/ML SDV IVPUSH SCH ×4 (01:47→19:44)
[2017-02-20] MEDS: Dextrose 5%-0.9% NaCl with KCl 1,000 ML IV SCH (08:04)
[2017-02-20] MEDS: Hydrochlorothiazide/Losartan 25-100 MG Tab PO SCH (08:08)
[2017-02-20] MEDS: Carvedilol 25 MG Tab PO SCH ×2 (08:09→20:52)
[2017-02-20] MEDS: Enoxaparin 40 MG/0.4 ML Syringe SUBCUT SCH (10:13)
[2017-02-20] MEDS ORDERED: Furosemide 20 MG/2 ML VIAL IVPUSH ONE (10:45)
[2017-02-20] MEDS: Morphine 2 MG/ML Syringe IVPUSH PRN (11:12)
--- NOTE | 2017-02-20 12:29 | PCM.SURGPN ---
- General Info Date of Service: 02/20/17 POD#: 3 Functional Status: Reports: Pain Controlled, Tolerating Diet, Ambulating, Urinating - Review of Systems General: Reports: No Symptoms Pulmonary: Reports: No Symptoms Cardiovascular: Reports: No Symptoms Gastrointestinal: Reports: No Symptoms, Flatus, Other (Had BM this am) Genitourinary: Reports: No Symptoms - Patient Data Vitals - Most Recent: Last Vital Signs Temp 98.5 F 02/20/17 08:00 Pulse 72 02/20/17 08:09 Resp 16 02/20/17 08:00 BP 172/89 H 02/20/17 08:09 Pulse Ox 94 L 02/20/17 08:00 Weight - Most Recent: 133.492 kg I&O - Last 24 Hours: Intake & Output 02/19/17 02/20/17 02/20/17 22:59 06:59 14:59 Intake Total 905 796 Output Total 500 300 850 Balance 405 496 -850 Med Orders - Current: Current Medications Hydrocodone Bitart/Acetaminophen ([place] 325-7.5 Mg) 1 tab PO Q4H PRN PRN Reason: Pain (moderate 4-6) Albuterol (Proventil Neb Soln) 2.5 mg NEB ONETIME PRN PRN Reason: Wheezing Carvedilol (Coreg) 25 mg PO DAILY [facility] Last Admin: 02/20/17 08:09 Dose: 25 mg Carvedilol (Coreg) 50 mg PO BEDTIME [facility] Last Admin: 02/19/17 20:34 Dose: 50 mg Enoxaparin Sodium (Lovenox) 40 mg SUBCUT DAILY [facility] Last Admin: 02/20/17 10:13 Dose: 40 mg HCTZ/Losartan Potassium (Hyzaar 100-25 Mg) 0.5 tab PO DAILY [facility] Last Admin: 02/20/17 08:08 Dose: 0.5 tab Piperacillin Sod/Tazobactam (Sod 3.375 gm/ Sodium Chloride) 50 mls @ 100 mls/ hr IV Q6H [facility] Last Admin: 02/20/17 05:30 Dose: 100 mls/hr Potassium Chloride/Dextrose/Sod Cl (D5 Ns With 20 Meq Kcl) 1,000 mls @ 50 mls/ hr IV Q13H [facility] [place] Last Admin: 02/20/17 08:04 Dose: 75 mls/hr Ketorolac Tromethamine (Toradol) 30 mg IVPUSH Q6H [facility] Stop: 02/23/17 07:53 Last Admin: 02/20/17 08:04 Dose: 30 mg Morphine Sulfate (Morphine) 2 mg IVPUSH Q1H PRN PRN Reason: Pain (severe 7-10) Last Admin: 02/20/17 11:12 Dose: 2 mg Naloxone HCl (Narcan) 0.2 mg IVPUSH Q1M PRN PRN Reason: Respiratory Depression Sodium Chloride (Saline Flush) 10 ml FLUSH ASDIRECTED PRN PRN Reason: Keep Vein Open Discontinued Medications Citric Acid/Sodium Citrate (Bicitra Solution) 30 ml PO .STK-MED ONE Stop: 02/17/17 14:56 Fentanyl (Sublimaze) 100 mcg IV .STK-MED ONE Stop: 02/17/17 14:56 Furosemide (Lasix) 10 mg IVPUSH NOW ONE Stop: 02/20/17 10:46 Last Admin: 02/20/17 11:04 Dose: 10 mg Glycopyrrolate (Robinul) 0.8 mg IV .STK-MED ONE Stop: 02/17/17 14:56 Hydromorphone HCl (Dilaudid) 1 mg IVPUSH ONETIME STA Stop: 02/17/17 10:15 Last Admin: 02/17/17 11:06 Dose: 1 mg Hydromorphone HCl (Dilaudid) 2 mg IV .STK-MED ONE Stop: 02/17/17 14:56 Sodium Chloride (Normal Saline) 1,000 mls @ 125 mls/hr IV ASDIRECTED [facility] Last Infusion: 02/17/17 14:03 Dose: 125 mls/hr Piperacillin Sod/Tazobactam (Sod 3.375 gm/ Sodium Chloride) 50 mls @ 100 mls/ hr IV Q6H [facility] Last Admin: 02/17/17 21:48 Dose: Not Given Piperacillin Sod/Tazobactam (Sod 3.375 gm/ Sodium Chloride) 50 mls @ 100 mls/ hr IV Q6H [facility] Stop: 02/17/17 10:45 Last Admin: 02/17/17 11:44 Dose: 100 mls/hr Cefoxitin Sodium 2 gm/ Sodium (Chloride) 100 mls @ 200 mls/hr IV ONETIME ONE Stop: 02/17/17 13:17 Last Admin: 02/17/17 13:27 Dose: 200 mls/hr Lactated Ringer's (Ringers, Lactated) 1,000 mls @ 125 mls/hr IV ASDIRECTED [facility] [place] Last Admin: 02/18/17 22:48 Dose: 125 mls/hr Piperacillin Sod/Tazobactam (Sod 3.375 gm/ Sodium Chloride) 50 mls @ 100 mls/ hr IV Q6H [facility] Stop: 02/22/17 17:01 Last Admin: 02/17/17 18:16 Dose: 100 mls/hr Lactated Ringer's (Ringers, Lactated) 1,000 mls @ 0 mls/hr IV ASDIRECTED [facility] PRN Reason: KVO Sodium Chloride (Normal Saline) 250 mls @ 100 mls/hr IV ASDIRECTED [facility] Last Admin: 02/18/17 23:00 Dose: 100 mls/hr Acetaminophen (Ofirmev) 100 mls @ as directed IV .STK-MED ONE Stop: 02/17/17 14:56 Lactated Ringer's (Ringers, Lactated) 1,000 mls @ as directed IV .STK-MED ONE Stop: 02/17/17 14:56 Potassium Chloride/Dextrose/Sod Cl (D5 Ns With 20 Meq Kcl) 1,000 mls @ 125 mls/ hr IV ASDIRECTED [facility] Potassium Chloride/Dextrose/Sod Cl (D5 Ns With 20 Meq Kcl) 1,000 mls @ 75 mls/ hr IV Q8H [facility] Last Admin: 02/19/17 17:05 Dose: Not Given Iopamidol (Isovue-370 (76%)) 150 ml IV ONETIME ONE Stop: 02/17/17 11:09 Last Admin: 02/17/17 11:33 Dose: 130 ml Ketorolac Tromethamine (Toradol) 15 mg IVPUSH .STK-MED ONE Stop: 02/17/17 14:56 Midazolam HCl (Versed 1 Mg/Ml) 2 mg IV .STK-MED ONE Stop: 02/17/17 14:56 Neostigmine Methylsulfate (Neostigmine Methylsulfate) 5 mg IVPUSH .STK-MED ONE Stop: 02/17/17 14:56 Ondansetron HCl (Zofran) 4 mg IVPUSH .STK-MED ONE Stop: 02/17/17 14:56 Piperacillin Sod/Tazobactam Sod (Zosyn) Confirm Administered Dose 3.375 gm .ROUTE .STK-MED ONE Stop: 02/18/17 05:39 Last Admin: 02/18/17 05:54 Dose: Not Given Propofol (Diprivan 20 Ml) 200 mg IV .STK-MED ONE Stop: 02/17/17 14:56 Rocuronium [place] (Zemuron) 50 mg IV .STK-MED ONE Stop: 02/17/17 14:56 Rocuronium [place] (Rocuronium [place]) 60 mg IV .STK-MED ONE Stop: 02/17/17 14:56 Succinylcholine Chloride (Quelicin) 140 mg IV .STK-MED ONE Stop: 02/17/17 14:56 - Exam Wound/Incisions: Healing Well General: Alert, Oriented Lungs: Clear to Auscultation GI/Abdominal Exam: Soft, Non-Tender - Problem List & Annotations (1) Appendicitis, acute SNOMED Code(s): 91202647 Code(s): K35.80 - UNSPECIFIED ACUTE APPENDICITIS Status: Acute Current Visit: Yes Qualifiers: Acute appendicitis type: unspecified acute appendicitis type Qualified Code (s): K35.80 - Unspecified acute appendicitis - Problem List Review Problem List Initiated/Reviewed/Updated: Yes - My Orders Last 24 Hours: Active Orders 24 hr Category Date Time Status Soft Diet [DIET] Diet 02/20/17 Dinner Ordered Carvedilol [Coreg] Med 02/19/17 21:00 Active 50 mg PO BEDTIME Dextrose 5%-0.9% NaCl with KCl [D5 NS with 20 mEq KCl] Med 02/19/17 17:00 Active 1,000 ml IV Q13H Medication Orders Hydrocodone Bitart/Acetaminophen ([place] 325-7.5 Mg) 1 tab PO Q4H PRN PRN Reason: Pain (moderate 4-6) Albuterol (Proventil Neb Soln) 2.5 mg NEB ONETIME PRN PRN Reason: Wheezing Carvedilol (Coreg) 25 mg PO DAILY [facility] Last Admin: 02/20/17 08:09 Dose: 25 mg Admin: 02/19/17 08:30 Dose: 25 mg Carvedilol (Coreg) 50 mg PO BEDTIME [facility] Last Admin: 02/19/17 20:34 Dose: 50 mg Enoxaparin Sodium (Lovenox) 40 mg SUBCUT DAILY [facility] Last Admin: 02/20/17 10:13 Dose: 40 mg Admin: 02/19/17 09:15 Dose: 40 mg Admin: 02/18/17 09:11 Dose: 40 mg HCTZ/Losartan Potassium (Hyzaar 100-25 Mg) 0.5 tab PO DAILY [facility] Last Admin: 02/20/17 08:08 Dose: 0.5 tab Admin: 02/19/17 09:15 Dose: 0.5 tab Piperacillin Sod/Tazobactam (Sod 3.375 gm/ Sodium Chloride) 50 mls @ 100 mls/ hr IV Q6H [facility] Last Admin: 02/20/17 05:30 Dose: 100 mls/hr Admin: 02/20/17 00:15 Dose: 100 mls/hr Admin: 02/19/17 17:47 Dose: 100 mls/hr Admin: 02/19/17 12:21 Dose: 100 mls/hr Admin: 02/19/17 06:50 Dose: 100 mls/hr Admin: 02/18/17 23:00 Dose: 100 mls/hr Admin: 02/18/17 17:46 Dose: 100 mls/hr Admin: 02/18/17 12:01 Dose: 100 mls/hr Admin: 02/18/17 05:45 Dose: 100 mls/hr Admin: 02/18/17 00:40 Dose: 100 mls/hr Potassium Chloride/Dextrose/Sod Cl (D5 Ns With 20 Meq Kcl) 1,000 mls @ 50 mls/ hr IV Q13H [facility] Last Admin: 02/20/17 08:04 Dose: 75 mls/hr Infusion: 02/20/17 06:23 Dose: 75 mls/hr Admin: 02/19/17 17:03 Dose: 75 mls/hr Ketorolac Tromethamine (Toradol) 30 mg IVPUSH Q6H [facility] Stop: 02/23/17 07:53 Last Admin: 02/20/17 08:04 Dose: 30 mg Admin: 02/20/17 01:47 Dose: 30 mg Admin: 02/19/17 19:43 Dose: 30 mg Admin: 02/19/17 14:14 Dose: 30 mg Admin: 02/19/17 08:31 Dose: 30 mg Admin: 02/19/17 01:29 Dose: 30 mg Admin: 02/18/17 19:51 Dose: 30 mg Admin: 02/18/17 13:59 Dose: 30 mg Admin: 02/18/17 09:10 Dose: 30 mg Morphine Sulfate (Morphine) 2 mg IVPUSH Q1H PRN PRN Reason: Pain (severe 7-10) Last Admin: 02/20/17 11:12 Dose: 2 mg Admin: 02/19/17 09:24 Dose: 2 mg Admin: 02/18/17 06:45 Dose: 2 mg Admin: 02/18/17 03:30 Dose: 2 mg Admin: 02/18/17 00:37 Dose: 2 mg Admin: 02/17/17 22:05 Dose: 2 mg Naloxone HCl (Narcan) 0.2 mg IVPUSH Q1M PRN PRN Reason: Respiratory Depression Sodium Chloride (Saline Flush) 10 ml FLUSH ASDIRECTED PRN PRN Reason: Keep Vein Open - Assessment Assessment (Free Text/Narrative):: Doing better, alexa liquids Responded well to IV Lasix Plan discharge tomorrow
[2017-02-20] MEDS ORDERED: Dextrose 5%-0.9% NaCl with KCl 1,000 ML IV SCH (23:00)
[2017-02-21] MEDS: Ketorolac 30 MG/ML SDV IVPUSH SCH ×2 (02:03→08:16)
[2017-02-21] MEDS: Piperacillin/Tazobactam 3.375 GM in Sodium Chloride 0.9% 50 ML IV SCH ×2 (05:40→11:27)
[2017-02-21] MEDS: Dextrose 5%-0.9% NaCl with KCl 1,000 ML IV SCH (07:26)
[2017-02-21] MEDS: Hydrochlorothiazide/Losartan 25-100 MG Tab PO SCH (08:18)
[2017-02-21] MEDS: Carvedilol 25 MG Tab PO SCH (08:18)
[2017-02-21] MEDS: Enoxaparin 40 MG/0.4 ML Syringe SUBCUT SCH (09:51)
--- NOTE | 2017-02-21 10:57 | PCM.DCSUM1 ---
Discharge Summary - Hospital Course Brief History: Presented to ER on 02/17 with abd pain, CT showed acute appendicitis - Discharge Data Discharge Date: 02/21/17 Discharge Disposition: Home, Self-Care 01 Condition: Fair - Discharge Diagnosis/Problem(s) (1) Appendicitis, acute SNOMED Code(s): 33001218 ICD Code: K35.80 - UNSPECIFIED ACUTE APPENDICITIS Status: Acute Current Visit: Yes Qualifiers: Acute appendicitis type: unspecified acute appendicitis type Qualified Code (s): K35.80 - Unspecified acute appendicitis - Patient Summary/Data Operative Procedure(s) Performed: Lap Appy. Umbilical Hernia Repair Hospital Course: Post op did well. Bowel function started to retuen in 2 days and is now tolerating a regular diet. Incisions healing well. Had been afebrile post op - Patient Instructions Diet: Usual Diet as Tolerated Activity: No Lifting Over 20 Pounds (for 4 weeks) Driving: Do Not Drive (today) Showering/Bathing: May Shower Wound/Incision Care: Keep Operative Site/Wound Site Clean and Dry Notify Provider of: Fever, Increased Pain - Discharge Plan Home Medications: Home Meds Aspirin [Adult Low Dose Aspirin EC] 162 mg PO BID 07/10/13 [History] Carvedilol [Coreg] 25 mg PO DAILY 10/27/16 [History] Ibuprofen [Advil] 400 mg PO BID PRN 10/27/16 [History] Carvedilol [Coreg] 50 mg PO BEDTIME 02/18/17 [History] Losartan/Hydrochlorothiazide [Losartan-HCTZ 50-12.5 MG] 1 tab PO DAILY 02/18/17 [History] Nitroglycerin 0.4 mg SL Q5M PRN 02/18/17 [History] Forms: ED Department Discharge Referrals: Dae Bess MD [Primary Care Provider] - (F/ u with Dr Israel Mclean or [place] Make appt [facility] Dr Bess in 2 weeks) - Discharge Summary/Plan Comment DC Time >30 min.: No - Patient Data Vitals - Most Recent: Last Vital Signs Temp 98.5 F 02/21/17 04:00 Pulse 64 02/21/17 08:18 Resp 18 02/21/17 04:00 BP 169/91 H 02/21/17 08:18 Pulse Ox 94 L 02/21/17 06:00 Weight - Most Recent: 133.492 kg I&O - Last 24 hours: Intake & Output 02/20/17 02/21/17 02/21/17 22:59 06:59 14:59 Intake Total 724 846 Output Total 250 Balance 724 596 Med Orders - Current: Current Medications Hydrocodone Bitart/Acetaminophen ([place] 325-7.5 Mg) 1 tab PO Q4H PRN PRN Reason: Pain (moderate 4-6) Last Admin: 02/20/17 18:50 Dose: 1 tab Albuterol (Proventil Neb Soln) 2.5 mg NEB ONETIME PRN PRN Reason: Wheezing Carvedilol (Coreg) 25 mg PO DAILY [facility] Last Admin: 02/21/17 08:18 Dose: 25 mg Carvedilol (Coreg) 50 mg PO BEDTIME [facility] Last Admin: 02/20/17 20:52 Dose: 50 mg Enoxaparin Sodium (Lovenox) 40 mg SUBCUT DAILY [facility] Last Admin: 02/21/17 09:51 Dose: 40 mg HCTZ/Losartan Potassium (Hyzaar 100-25 Mg) 0.5 tab PO DAILY [facility] Last Admin: 02/21/17 08:18 Dose: 0.5 tab Piperacillin Sod/Tazobactam (Sod 3.375 gm/ Sodium Chloride) 50 mls @ 100 mls/ hr IV Q6H [facility] Last Admin: 02/21/17 05:40 Dose: 100 mls/hr Potassium Chloride/Dextrose/Sod Cl (D5 Ns With 20 Meq Kcl) 1,000 mls @ 50 mls/ hr IV Q20H [facility] Last Admin: 02/21/17 02:02 Dose: 50 mls/hr Ketorolac Tromethamine (Toradol) 30 mg IVPUSH Q6H [facility] Stop: 02/23/17 07:53 Last Admin: 02/21/17 08:16 Dose: 30 mg Morphine Sulfate (Morphine) 2 mg IVPUSH Q1H PRN PRN Reason: Pain (severe 7-10) Last Admin: 02/20/17 11:12 Dose: 2 mg Naloxone HCl (Narcan) 0.2 mg IVPUSH Q1M PRN PRN Reason: Respiratory Depression Sodium Chloride (Saline Flush) 10 ml FLUSH ASDIRECTED PRN PRN Reason: Keep Vein Open Discontinued Medications Citric Acid/Sodium Citrate (Bicitra Solution) 30 ml PO .STK-MED ONE Stop: 02/17/17 14:56 Fentanyl (Sublimaze) 100 mcg IV .STK-MED ONE Stop: 02/17/17 14:56 Furosemide (Lasix) 10 mg IVPUSH NOW ONE Stop: 02/20/17 10:46 Last Admin: 02/20/17 11:04 Dose: 10 mg Glycopyrrolate (Robinul) 0.8 mg IV .STK-MED ONE Stop: 02/17/17 14:56 Hydromorphone HCl (Dilaudid) 1 mg IVPUSH ONETIME [facility] Stop: 02/17/17 10:15 Last Admin: 02/17/17 11:06 Dose: 1 mg Hydromorphone HCl (Dilaudid) 2 mg IV .STK-MED ONE Stop: 02/17/17 14:56 Sodium Chloride (Normal Saline) 1,000 mls @ 125 mls/hr IV ASDIRECTED [facility] Last Infusion: 02/17/17 14:03 Dose: 125 mls/hr Piperacillin Sod/Tazobactam (Sod 3.375 gm/ Sodium Chloride) 50 mls @ 100 mls/ hr IV Q6H [facility] Last Admin: 02/17/17 21:48 Dose: Not Given Piperacillin Sod/Tazobactam (Sod 3.375 gm/ Sodium Chloride) 50 mls @ 100 mls/ hr IV Q6H [facility] Stop: 02/17/17 10:45 Last Admin: 02/17/17 11:44 Dose: 100 mls/hr Cefoxitin Sodium 2 gm/ Sodium (Chloride) 100 mls @ 200 mls/hr IV ONETIME ONE Stop: 02/17/17 13:17 Last Admin: 02/17/17 13:27 Dose: 200 mls/hr Lactated Ringer's (Ringers, Lactated) 1,000 mls @ 125 mls/hr IV ASDIRECTED [facility] Last Admin: 02/18/17 22:48 Dose: 125 mls/hr Piperacillin Sod/Tazobactam (Sod 3.375 gm/ Sodium Chloride) 50 mls @ 100 mls/ hr IV Q6H [facility] Stop: 02/22/17 17:01 Last Admin: 02/17/17 18:16 Dose: 100 mls/hr Lactated Ringer's (Ringers, Lactated) 1,000 mls @ 0 mls/hr IV ASDIRECTED [facility] PRN Reason: KVO Sodium Chloride (Normal Saline) 250 mls @ 100 mls/hr IV ASDIRECTED [facility] Last Admin: 02/18/17 23:00 Dose: 100 mls/hr Acetaminophen (Ofirmev) 100 mls @ as directed IV .STK-MED ONE Stop: 02/17/17 14:56 Lactated Ringer's (Ringers, Lactated) 1,000 mls @ as directed IV .STK-MED ONE Stop: 02/17/17 14:56 Potassium Chloride/Dextrose/Sod Cl (D5 Ns With 20 Meq Kcl) 1,000 mls @ 125 mls/ hr IV ASDIRECTED [facility] Potassium Chloride/Dextrose/Sod Cl (D5 Ns With 20 Meq Kcl) 1,000 mls @ 75 mls/ hr IV Q8H [facility] Last Admin: 02/19/17 17:05 Dose: Not Given Potassium Chloride/Dextrose/Sod Cl (D5 Ns With 20 Meq Kcl) 1,000 mls @ 50 mls/ hr IV Q13H [facility] Stop: 02/20/17 22:59 Last Admin: 02/21/17 07:26 Dose: Not Given Iopamidol (Isovue-370 (76%)) 150 ml IV ONETIME ONE Stop: 02/17/17 11:09 Last Admin: 02/17/17 11:33 Dose: 130 ml Ketorolac Tromethamine (Toradol) 15 mg IVPUSH .STK-MED ONE Stop: 02/17/17 14:56 Midazolam HCl (Versed 1 Mg/Ml) 2 mg IV .STK-MED ONE Stop: 02/17/17 14:56 Neostigmine Methylsulfate (Neostigmine Methylsulfate) 5 mg IVPUSH .STK-MED ONE Stop: 02/17/17 14:56 Ondansetron HCl (Zofran) 4 mg IVPUSH .STK-MED ONE Stop: 02/17/17 14:56 Piperacillin Sod/Tazobactam Sod (Zosyn) Confirm Administered Dose 3.375 gm .ROUTE .STK-MED ONE Stop: 02/18/17 05:39 Last Admin: 02/18/17 05:54 Dose: Not Given Propofol (Diprivan 20 Ml) 200 mg IV .STK-MED ONE Stop: 02/17/17 14:56 Rocuronium [place] (Zemuron) 50 mg IV .STK-MED ONE Stop: 02/17/17 14:56 Rocuronium [place] (Rocuronium [place]) 60 mg IV .STK-MED ONE Stop: 02/17/17 14:56 Succinylcholine Chloride (Quelicin) 140 mg IV .STK-MED ONE Stop: 02/17/17 14:56 *Q Meaningful Use (DIS) - VTE *Q VTE Criteria *Q: - Stroke *Q Stroke Criteria *Q: - AMI *Q AMI Criteria *Q:
--- NOTE | 2017-02-21 10:58 | PCM.SURGPN ---
- General Info Date of Service: 02/21/17 POD#: 4 Functional Status: Reports: Pain Controlled, Tolerating Diet, Ambulating - Review of Systems General: Reports: No Symptoms Pulmonary: Reports: No Symptoms Cardiovascular: Reports: No Symptoms Gastrointestinal: Reports: No Symptoms Genitourinary: Reports: No Symptoms - Patient Data Vitals - Most Recent: Last Vital Signs Temp 98.5 F 02/21/17 04:00 Pulse 64 02/21/17 08:18 Resp 18 02/21/17 04:00 BP 169/91 H 02/21/17 08:18 Pulse Ox 94 L 02/21/17 06:00 Weight - Most Recent: 133.492 kg I&O - Last 24 Hours: Intake & Output 02/20/17 02/21/17 02/21/17 22:59 06:59 14:59 Intake Total 724 846 Output Total 250 Balance 724 596 Med Orders - Current: Current Medications Hydrocodone Bitart/Acetaminophen (Blair 325-7.5 Mg) 1 tab PO Q4H PRN PRN Reason: Pain (moderate 4-6) Last Admin: 02/20/17 18:50 Dose: 1 tab Albuterol (Proventil Neb Soln) 2.5 mg NEB ONETIME PRN PRN Reason: Wheezing Carvedilol (Coreg) 25 mg PO DAILY [facility] Last Admin: 02/21/17 08:18 Dose: 25 mg Carvedilol (Coreg) 50 mg PO BEDTIME [facility] Last Admin: 02/20/17 20:52 Dose: 50 mg Enoxaparin Sodium (Lovenox) 40 mg SUBCUT DAILY [facility] Last Admin: 02/21/17 09:51 Dose: 40 mg HCTZ/Losartan Potassium (Hyzaar 100-25 Mg) 0.5 tab PO DAILY [facility] Last Admin: 02/21/17 08:18 Dose: 0.5 tab Piperacillin Sod/Tazobactam (Sod 3.375 gm/ Sodium Chloride) 50 mls @ 100 mls/ hr IV Q6H [facility] Last Admin: 02/21/17 05:40 Dose: 100 mls/hr Potassium Chloride/Dextrose/Sod Cl (D5 Ns With 20 Meq Kcl) 1,000 mls @ 50 mls/ hr IV Q20H [facility] Last Admin: 02/21/17 02:02 Dose: 50 mls/hr Ketorolac Tromethamine (Toradol) 30 mg IVPUSH Q6H SYLVIA Stop: 02/23/17 07:53 Last Admin: 02/21/17 08:16 Dose: 30 mg Morphine Sulfate (Morphine) 2 mg IVPUSH Q1H PRN PRN Reason: Pain (severe 7-10) Last Admin: 02/20/17 11:12 Dose: 2 mg Naloxone HCl (Narcan) 0.2 mg IVPUSH Q1M PRN PRN Reason: Respiratory Depression Sodium Chloride (Saline Flush) 10 ml FLUSH ASDIRECTED PRN PRN Reason: Keep Vein Open Discontinued Medications Citric Acid/Sodium Citrate (Bicitra Solution) 30 ml PO .STK-MED ONE Stop: 02/17/17 14:56 Fentanyl (Sublimaze) 100 mcg IV .STK-MED ONE Stop: 02/17/17 14:56 Furosemide (Lasix) 10 mg IVPUSH NOW ONE Stop: 02/20/17 10:46 Last Admin: 02/20/17 11:04 Dose: 10 mg Glycopyrrolate (Robinul) 0.8 mg IV .STK-MED ONE Stop: 02/17/17 14:56 Hydromorphone HCl (Dilaudid) 1 mg IVPUSH ONETIME STA Stop: 02/17/17 10:15 Last Admin: 02/17/17 11:06 Dose: 1 mg Hydromorphone HCl (Dilaudid) 2 mg IV .STK-MED ONE Stop: 02/17/17 14:56 Sodium Chloride (Normal Saline) 1,000 mls @ 125 mls/hr IV ASDIRECTED [facility] Last Infusion: 02/17/17 14:03 Dose: 125 mls/hr Piperacillin Sod/Tazobactam (Sod 3.375 gm/ Sodium Chloride) 50 mls @ 100 mls/ hr IV Q6H [facility] Last Admin: 02/17/17 21:48 Dose: Not Given Piperacillin Sod/Tazobactam (Sod 3.375 gm/ Sodium Chloride) 50 mls @ 100 mls/ hr IV Q6H STA Stop: 02/17/17 10:45 Last Admin: 02/17/17 11:44 Dose: 100 mls/hr Cefoxitin Sodium 2 gm/ Sodium (Chloride) 100 mls @ 200 mls/hr IV ONETIME ONE Stop: 02/17/17 13:17 Last Admin: 02/17/17 13:27 Dose: 200 mls/hr Lactated Ringer's (Ringers, Lactated) 1,000 mls @ 125 mls/hr IV ASDIRECTED [facility] Last Admin: 02/18/17 22:48 Dose: 125 mls/hr Piperacillin Sod/Tazobactam (Sod 3.375 gm/ Sodium Chloride) 50 mls @ 100 mls/ hr IV Q6H [facility] Stop: 02/22/17 17:01 Last Admin: 02/17/17 18:16 Dose: 100 mls/hr Lactated Ringer's (Ringers, Lactated) 1,000 mls @ 0 mls/hr IV ASDIRECTED [facility] PRN Reason: KVO Sodium Chloride (Normal Saline) 250 mls @ 100 mls/hr IV ASDIRECTED [facility] Last Admin: 02/18/17 23:00 Dose: 100 mls/hr Acetaminophen (Ofirmev) 100 mls @ as directed IV .STK-MED ONE Stop: 02/17/17 14:56 Lactated Ringer's (Ringers, Lactated) 1,000 mls @ as directed IV .STK-MED ONE Stop: 02/17/17 14:56 Potassium Chloride/Dextrose/Sod Cl (D5 Ns With 20 Meq Kcl) 1,000 mls @ 125 mls/ hr IV ASDIRECTED [facility] Potassium Chloride/Dextrose/Sod Cl (D5 Ns With 20 Meq Kcl) 1,000 mls @ 75 mls/ hr IV Q8H [facility] Last Admin: 02/19/17 17:05 Dose: Not Given Potassium Chloride/Dextrose/Sod Cl (D5 Ns With 20 Meq Kcl) 1,000 mls @ 50 mls/ hr IV Q13H [facility] Stop: 02/20/17 22:59 Last Admin: 02/21/17 07:26 Dose: Not Given Iopamidol (Isovue-370 (76%)) 150 ml IV ONETIME ONE Stop: 02/17/17 11:09 Last Admin: 02/17/17 11:33 Dose: 130 ml Ketorolac Tromethamine (Toradol) 15 mg IVPUSH .STK-MED ONE Stop: 02/17/17 14:56 Midazolam HCl (Versed 1 Mg/Ml) 2 mg IV .STK-MED ONE Stop: 02/17/17 14:56 Neostigmine Methylsulfate (Neostigmine Methylsulfate) 5 mg IVPUSH .STK-MED ONE Stop: 02/17/17 14:56 Ondansetron HCl (Zofran) 4 mg IVPUSH .STK-MED ONE Stop: 02/17/17 14:56 Piperacillin Sod/Tazobactam Sod (Zosyn) Confirm Administered Dose 3.375 gm .ROUTE .STK-MED ONE Stop: 02/18/17 05:39 Last Admin: 02/18/17 05:54 Dose: Not Given Propofol (Diprivan 20 Ml) 200 mg IV .STK-MED ONE Stop: 02/17/17 14:56 Rocuronium [place] (Zemuron) 50 mg IV .STK-MED ONE Stop: 02/17/17 14:56 Rocuronium [place] (Rocuronium [place]) 60 mg IV .STK-MED ONE Stop: 02/17/17 14:56 Succinylcholine Chloride (Quelicin) 140 mg IV .STK-MED ONE Stop: 02/17/17 14:56 - Exam Wound/Incisions: Healing Well General: Alert, Oriented GI/Abdominal Exam: Soft, Non-Tender - Problem List & Annotations (1) Appendicitis, acute SNOMED Code(s): 37634289 Code(s): K35.80 - UNSPECIFIED ACUTE APPENDICITIS Status: Acute Current Visit: Yes Qualifiers: Acute appendicitis type: unspecified acute appendicitis type Qualified Code (s): K35.80 - Unspecified acute appendicitis - Problem List Review Problem List Initiated/Reviewed/Updated: Yes - My Orders Last 24 Hours: Active Orders 24 hr Category Date Time Status Ready for Discharge [RC] PER UNIT ROUTINE Care 02/21/17 10:53 Ordered Soft Diet [DIET] Diet 02/20/17 Dinner Active Dextrose 5%-0.9% NaCl with KCl [D5 NS with 20 mEq KCl] Med 02/20/17 23:00 Active 1,000 ml IV Q20H Medication Orders Hydrocodone Bitart/Acetaminophen (Blair 325-7.5 Mg) 1 tab PO Q4H PRN PRN Reason: Pain (moderate 4-6) Last Admin: 02/20/17 18:50 Dose: 1 tab Albuterol (Proventil Neb Soln) 2.5 mg NEB ONETIME PRN PRN Reason: Wheezing Carvedilol (Coreg) 25 mg PO DAILY [facility] Last Admin: 02/21/17 08:18 Dose: 25 mg Admin: 02/20/17 08:09 Dose: 25 mg Admin: 02/19/17 08:30 Dose: 25 mg Carvedilol (Coreg) 50 mg PO BEDTIME [facility] Last Admin: 02/20/17 20:52 Dose: 50 mg Admin: 02/19/17 20:34 Dose: 50 mg Enoxaparin Sodium (Lovenox) 40 mg SUBCUT DAILY [facility] Last Admin: 02/21/17 09:51 Dose: 40 mg Admin: 02/20/17 10:13 Dose: 40 mg Admin: 02/19/17 09:15 Dose: 40 mg Admin: 02/18/17 09:11 Dose: 40 mg HCTZ/Losartan Potassium (Hyzaar 100-25 Mg) 0.5 tab PO DAILY [facility] Last Admin: 02/21/17 08:18 Dose: 0.5 tab Admin: 02/20/17 08:08 Dose: 0.5 tab Admin: 02/19/17 09:15 Dose: 0.5 tab Piperacillin Sod/Tazobactam (Sod 3.375 gm/ Sodium Chloride) 50 mls @ 100 mls/ hr IV Q6H [facility] Last Admin: 02/21/17 05:40 Dose: 100 mls/hr Admin: 02/20/17 23:58 Dose: 100 mls/hr Admin: 02/20/17 18:28 Dose: 100 mls/hr Admin: 02/20/17 12:35 Dose: 100 mls/hr Admin: 02/20/17 05:30 Dose: 100 mls/hr Admin: 02/20/17 00:15 Dose: 100 mls/hr Admin: 02/19/17 17:47 Dose: 100 mls/hr Admin: 02/19/17 12:21 Dose: 100 mls/hr Admin: 02/19/17 06:50 Dose: 100 mls/hr Admin: 02/18/17 23:00 Dose: 100 mls/hr Admin: 02/18/17 17:46 Dose: 100 mls/hr Admin: 02/18/17 12:01 Dose: 100 mls/hr Admin: 02/18/17 05:45 Dose: 100 mls/hr Admin: 02/18/17 00:40 Dose: 100 mls/hr Potassium Chloride/Dextrose/Sod Cl (D5 Ns With 20 Meq Kcl) 1,000 mls @ 50 mls/ hr IV Q20H [facility] Last Admin: 02/21/17 02:02 Dose: 50 mls/hr Ketorolac Tromethamine (Toradol) 30 mg IVPUSH Q6H [facility] Stop: 02/23/17 07:53 Last Admin: 02/21/17 08:16 Dose: 30 mg Admin: 02/21/17 02:03 Dose: 30 mg Admin: 02/20/17 19:44 Dose: 30 mg Admin: 02/20/17 14:47 Dose: 30 mg Admin: 02/20/17 08:04 Dose: 30 mg Admin: 02/20/17 01:47 Dose: 30 mg Admin: 02/19/17 19:43 Dose: 30 mg Admin: 02/19/17 14:14 Dose: 30 mg Admin: 02/19/17 08:31 Dose: 30 mg Admin: 02/19/17 01:29 Dose: 30 mg Admin: 02/18/17 19:51 Dose: 30 mg Admin: 02/18/17 13:59 Dose: 30 mg Admin: 02/18/17 09:10 Dose: 30 mg Morphine Sulfate (Morphine) 2 mg IVPUSH Q1H PRN PRN Reason: Pain (severe 7-10) Last Admin: 02/20/17 11:12 Dose: 2 mg Admin: 02/19/17 09:24 Dose: 2 mg Admin: 02/18/17 06:45 Dose: 2 mg Admin: 02/18/17 03:30 Dose: 2 mg Admin: 02/18/17 00:37 Dose: 2 mg Admin: 02/17/17 22:05 Dose: 2 mg Naloxone HCl (Narcan) 0.2 mg IVPUSH Q1M PRN PRN Reason: Respiratory Depression Sodium Chloride (Saline Flush) 10 ml FLUSH ASDIRECTED PRN PRN Reason: Keep Vein Open - Assessment Assessment (Free Text/Narrative):: Doing well - Plan Plan (Free Text/Narrative):: Ready for discharge
[2017-02-21 13:53] VITALS: BP 145/79
== END 2017-02-21 13:10 | disposition home or self-care (01) | DRG 340 ==
LOC: FB.MS 09:59 → FB.ED 09:59 → FB.SDS 12:57 → FB.MS 16:48
PROVIDERS: ADMIT Surgery; ATTEND Surgery
PROC: 0DTJ4ZZ Resection of Appendix, Percutaneous Endoscopic Approach (ICD-10-PCS; principal; 2017-02-17)
PROC: 0WQF0ZZ Repair Abdominal Wall, Open Approach (ICD-10-PCS; 2017-02-17)
DX: K35.3 Acute appendicitis with localized peritonitis (principal); K42.9 Umbilical hernia without obstruction or gangrene; Z87.891 Personal history of nicotine dependence; Z79.82 Long term (current) use of aspirin
CPT/HCPCS: 36415; 71010; 74177; 80048; 80076; 81001; 82150; 83880; 85025; 85610; 87070; 87075; 87205; 88304; 93005; 94150; 96361; 96365; 96375; 99284; A9270-GY; J0131; J0330; J0694; J1170; J1650; J1885; J1940; J2250; J2270; J2405; J2543; J2704; J2710; J3010; J3480; J7030; J7040; J7050; J7120; Q9967

== ENCOUNTER 2019-09-30 12:47 | Emergency (ER) | payer MEDICARE ==
--- NOTE | 2019-09-30 12:59 | EDM.PDOC ---
ED HPI GENERAL MEDICAL PROBLEM - General Stated Complaint: CHEST PAIN Time Seen by Provider: 09/30/19 12:55 Source of Information: Reports: Patient History Limitations: Reports: No Limitations - History of Present Illness INITIAL COMMENTS - FREE TEXT/NARRATIVE: 64-year-old male who reports that approximately 8-9 days ago he developed chills and sweats that occurred after he ran outside and got wet in the rain. He had diffuse body aches at the time and subjective fever although when he measured his temperature was normal. Last Thursday morning, he began to have pain in his chest, across his shoulders and in both arms. This was a pressure type pain that did seem to get worse when he did any activity and seemed to improve with rest. It has progressively worsened with time. He reports that the pain does seem to almost go away except in both of his arms when he is completely rest but it does go up to a 9/10 when he has activity and he feels very short of breath with this. Shortness of breath has been present during the entire 8-9 days as well. It has also worsened with time. He has had no cough. He has had no nasal congestion. No sore throat. No change in his smell or taste. He has had some nausea but no vomiting. He has had decreased appetite but he reports he has been drinking fluids well. He currently rates his pain as a 6/10 and it is improving. He reports that the pain gets down to a 0/10 in his chest at complete rest. There are no other associated signs or symptoms. There are no other modifying factors. Onset: Other (8-9 days ago) Duration: Getting Worse Location: Reports: Chest, Upper Extremity, Left, Upper Extremity, Right Quality: Reports: Pressure Severity: Moderate (to severe) Improves with: Reports: Rest Worsens with: Reports: Other (Activity) Context: Reports: Other (As above) Associated Symptoms: Reports: Chest Pain, Fever/Chills, Loss of Appetite, Malaise, Nausea/Vomiting, Shortness of Breath Treatments [employer]: Reports: Other (see below) (Nothing) chest/shoulder blades/neck/left arm Pain Score (Numeric/FACES): 6 - Related Data Allergies Allergy/AdvReac Type Severity Reaction Status Date / Time No Known Allergies Allergy Verified 09/30/19 13:09 Home Meds: Home Meds Aspirin [Adult Low Dose Aspirin EC] 162 mg PO BID 07/10/13 [History] carvediloL [Coreg] 25 mg PO DAILY 10/27/16 [History] Nitroglycerin 0.4 mg SL Q5M PRN 02/18/17 [History] carvediloL [Coreg] 50 mg PO BEDTIME 02/18/17 [History] Losartan [Cozaar] 50 mg PO DAILY 09/15/19 [History] Past Medical History HEENT History: Reports: Impaired Vision Cardiovascular History: Reports: Hypertension, Other (See Below) Other Cardiovascular History: LVH Respiratory History: Reports: Sleep Apnea Gastrointestinal History: Reports: GERD Musculoskeletal History: Reports: Fracture Neurological History: Reports: Head Trauma Endocrine/Metabolic History: Reports: Obesity/BMI 30+ - Past Surgical History HEENT Surgical History: Reports: Tonsillectomy GI Surgical History: Reports: Appendectomy, Hernia Repair/Other Neurological Surgical History: Reports: Lumbar Spine Musculoskeletal Surgical History: Reports: ORIF (Left ankle) Social & Family History - Tobacco Use Smoking Status *Q: Former Smoker (Quit in the 1970s) - Caffeine Use Caffeine Use: Reports: Coffee Other Caffeine Use: 2/day - Alcohol Use Alcohol Use History: Yes Alcohol Use Frequency: Socially (Occasional alcohol use) - Living Situation & Occupation Living situation: Reports: Occupation: Employed (He is a delarosa.) ED ROS GENERAL - Review of Systems Review Of Systems: See Below Constitutional: Reports: Chills, Malaise, Fatigue HEENT: Reports: No Symptoms Respiratory: Reports: Shortness of Breath Cardiovascular: Reports: Chest Pain, Dyspnea on Exertion Endocrine: Reports: No Symptoms GI/Abdominal: Reports: Nausea. Denies: Vomiting : Reports: No Symptoms Musculoskeletal: Reports: Shoulder Pain, Arm Pain, Back Pain, Leg Pain, Other ( Body aches) Skin: Reports: No Symptoms Neurological: Reports: Headache Psychiatric: Reports: No Symptoms Hematologic/Lymphatic: Reports: No Symptoms Immunologic: Reports: No Symptoms ED EXAM, GENERAL - Physical Exam Exam: See Below Exam Limited By: No Limitations General Appearance: Alert, WD/WN, No Apparent Distress Eye Exam: Bilateral Eye: EOMI, Normal Inspection, PERRL Ears: Normal External Exam, Hearing Grossly Normal Ear Exam: Bilateral Ear: Auricle Normal Nose: Normal Inspection, Normal Mucosa, No Blood Throat/Mouth: Normal Inspection, Normal Oropharynx, Normal Voice, No Airway Compromise Head: Atraumatic, Normocephalic Neck: Normal Inspection, Supple, Non-Tender, Full Range of Motion Respiratory/Chest: No Accessory Muscle Use, Chest Non-Tender, Rales (Some in the bases.), Rhonchi (Posteriorly.), Other (Somewhat increased respiratory rate) . No: Wheezing Cardiovascular: Normal Peripheral Pulses, Regular Rate, Rhythm, No JVD Peripheral Pulses: 2+: Radial (L), Radial (R), Dorsalis Pedis (L), Dorsalis Pedis (R) GI/Abdominal: Normal Bowel Sounds, Soft, Non-Tender Back Exam: Normal Inspection Extremities: Normal Range of Motion, Non-Tender, Normal Capillary Refill, Pedal Edema (Slight. Left greater than right) Neurological: Alert, Oriented, CN II-XII Intact, Normal Cognition, No Motor/ Sensory Deficits Skin Exam: Warm, Dry, Intact, Normal Color, No Rash EKG INTERPRETATION EKG Date: 09/30/19 Time: 12:49 Rhythm: NSR Rate (Beats/Min): 74 [place]: Normal P-Wave: Present QRS: Other (LVH is evident) ST-T: Normal QT: Normal Comparison: No Change (No change in today's EKG from EKG performed on 2016.) Course - Vital Signs Last Recorded V/S: Last Vital Signs Temp 37.4 C 09/30/19 12:50 Pulse 70 09/30/19 13:55 Resp 19 09/30/19 13:55 BP 150/74 H 09/30/19 13:55 Pulse Ox 93 L 09/30/19 13:55 - Orders/Labs/Meds Orders: Active Orders 24 hr Category Date Time Status EKG Documentation Completion [RC] ASDIRECTED Care 09/30/19 13:02 Active Oxygen Therapy Adult [Oxygen Therapy, ED] [RC] Care 09/30/19 13:12 Active ASDIRECTED Nitroglycerin [Nitrostat] Med 09/30/19 13:13 Active 0.4 mg SL Q5M PRN Sodium Chloride 0.9% [Normal Saline] 1,000 ml Med 09/30/19 16:00 Active IV ASDIRECTED Sodium Chloride 0.9% [Saline Flush] Med 09/30/19 13:01 Active 10 ml FLUSH ASDIRECTED PRN Peripheral IV Insertion Adult [OM.PC] Routine Oth 09/30/19 13:01 Ordered EKG 12 Lead [EK] Routine Ther 09/30/19 13:01 Ordered Medication Orders Sodium Chloride (Normal Saline) 1,000 mls @ 125 mls/hr IV ASDIRECTED SYLVIA Last Admin: 09/30/19 16:02 Dose: 125 mls/hr Nitroglycerin (Nitrostat) 0.4 mg SL Q5M PRN PRN Reason: Chest Pain Last Admin: 09/30/19 13:17 Dose: 0.4 mg Sodium Chloride (Saline Flush) 10 ml FLUSH ASDIRECTED PRN PRN Reason: Keep Vein Open Labs: Laboratory Tests 09/30/19 09/30/19 09/30/19 Range/Units 13:10 13:10 13:10 WBC 3.0 L (4.5-12.0) X10-3/uL RBC 4.97 (4.30-5.75) x10(6)uL Hgb 13.3 L (13.5-17.8) g/dL Hct 41.8 (30.0-51.3) % MCV 84.2 (80-96) fL MCH 26.8 L (27.7-33.6) pg MCHC 31.8 L (32.2-35.4) g/dL RDW 13.5 (11.5-15.5) % Plt Count 130 (125-369) X10(3)uL MPV 7.5 (7.4-10.4) fL Neut % (Auto) 77.3 (46-82) % Lymph % (Auto) 16.0 (13-37) % Dixon % (Auto) 5.9 (4-12) % Eos % (Auto) 1 (1.0-5.0) % Baso % (Auto) 0 (0-2) % Neut # (Auto) 2.2 (1.6-8.3) # Lymph # (Auto) 0.5 L (0.6-5.0) # Dixon # (Auto) 0.2 (0.0-1.3) # Eos # (Auto) 0.0 (0.0-0.8) # Baso # (Auto) 0.0 (0.0-0.2) # PT 10.6 (9.0-11.1) sec INR 0.98 L (1.00-1.24) APTT 26.0 (24.4-33.2) SECONDS Sodium 138 (135-145) mmol/L Potassium 3.7 (3.5-5.3) mmol/L Chloride 101 (100-110) mmol/L Carbon Dioxide 28 (21-32) mmol/L BUN 18 (7-18) mg/dL Creatinine 1.0 (0.70-1.30) mg/dL Est Cr Clr Drug Dosing 82.12 mL/min Estimated GFR (MDRD) > 60 (>60) BUN/Creatinine Ratio 18.0 (9-20) Glucose 99 (80-116) mg/dL Calcium 8.2 L (8.6-10.2) mg/dL Magnesium 1.8 (1.8-2.5) mg/dL Total Bilirubin 1.0 (0.1-1.3) mg/dL AST 46 H (5-25) IU/L ALT 54 H (12-36) U/L Alkaline Phosphatase 105 (56-112) IU/L Troponin I (4.0-60.3) pg/mL NT-Pro-B Natriuret Pep (<=125) pg/mL Total Protein 7.8 (6.0-8.0) g/dL Albumin 3.4 (3.2-4.6) g/dL Globulin 4.4 g/dL Albumin/Globulin Ratio 0.8 SARS Virus RNA (PCR) (NEGATIVE) 09/30/19 09/30/19 Range/Units 13:10 13:52 WBC (4.5-12.0) X10-3/uL RBC (4.30-5.75) x10(6)uL Hgb (13.5-17.8) g/dL Hct (30.0-51.3) % MCV (80-96) fL MCH (27.7-33.6) pg MCHC (32.2-35.4) g/dL RDW (11.5-15.5) % Plt Count (125-369) X10(3)uL MPV (7.4-10.4) fL Neut % (Auto) (46-82) % Lymph % (Auto) (13-37) % Dixon % (Auto) (4-12) % Eos % (Auto) (1.0-5.0) % Baso % (Auto) (0-2) % Neut # (Auto) (1.6-8.3) # Lymph # (Auto) (0.6-5.0) # Dixon # (Auto) (0.0-1.3) # Eos # (Auto) (0.0-0.8) # Baso # (Auto) (0.0-0.2) # PT (9.0-11.1) sec INR (1.00-1.24) APTT (24.4-33.2) SECONDS Sodium (135-145) mmol/L Potassium (3.5-5.3) mmol/L Chloride (100-110) mmol/L Carbon Dioxide (21-32) mmol/L BUN (7-18) mg/dL Creatinine (0.70-1.30) mg/dL Est Cr Clr Drug Dosing mL/min Estimated GFR (MDRD) (>60) BUN/Creatinine Ratio (9-20) Glucose (80-116) mg/dL Calcium (8.6-10.2) mg/dL Magnesium (1.8-2.5) mg/dL Total Bilirubin (0.1-1.3) mg/dL AST (5-25) IU/L ALT (12-36) U/L Alkaline Phosphatase (56-112) IU/L Troponin I 4.6 (4.0-60.3) pg/mL NT-Pro-B Natriuret Pep 30 (<=125) pg/mL Total Protein (6.0-8.0) g/dL Albumin (3.2-4.6) g/dL Globulin g/dL Albumin/Globulin Ratio SARS Virus RNA (PCR) Positive H (NEGATIVE) Meds: Medications Generic Name Dose Route Start Last Admin Trade Name Freq PRN Reason Stop Dose Admin Sodium Chloride 1,000 mls @ 125 mls/hr 09/30/19 16:00 09/30/19 16:02 Normal Saline IV 125 mls/hr ASDIRECTED SYLVIA Administration Nitroglycerin 0.4 mg 09/30/19 13:13 09/30/19 13:17 Nitrostat SL 0.4 mg Q5M PRN Administration Chest Pain Sodium Chloride 10 ml 09/30/19 13:01 Saline Flush FLUSH ASDIRECTED PRN Keep Vein Open Discontinued Medications Generic Name Dose Route Start Last Admin Trade Name Norman PRN Reason Stop Dose Admin Aspirin 324 mg 09/30/19 13:13 09/30/19 13:15 Aspirin PO 09/30/19 13:14 324 mg ONETIME ONE Administration Iopamidol 100 ml 09/30/19 14:00 09/30/19 14:24 Isovue-370 (76%) IV 09/30/19 14:01 83 ml . DIRECTED ONE Administration - Radiology Interpretation Free Text/Narrative:: Portable chest x-ray shows bilateral increased pulmonary markings. CTA of the chest showed no evidence of pulmonary emboli but it did show bilateral infiltrates that were consistent with Covid 19. - Re-Assessments/Exams Free Text/Narrative Re-Assessment/Exam: 09/30/19 13:45: The patient's troponin and proBNP were normal. His chest x-ray does show bilateral pulmonary markings and his white blood cell count is decreased, his platelet count is decreased and there is mild LFT elevation. Despite the fact that he has had no cough or nasal congestion, sore throat or decreased taste or smell, I feel that he possibly has Covid 19. I sent a test for Covid 19 and he will be going for CTA of his chest. He is placed on isolation of this point. The patient did get 1 sublingual nitroglycerin but his blood pressure dropped with this and all further nitroglycerin were withheld. He has remained with a blood pressure in the 120 systolic range, a pulse in the 70 range and on supplemental oxygen via nasal cannula, he has O2 saturations mostly in the 97% range but they do drop to 90-91%. 09/30/19 15:00: The CTA of the chest did show evidence of bilateral rates that were consistent with Covid 19. There was no evidence of pulmonary emboli. The rapid Covid came back at this time and it was positive. With the patient having hypoxia, he will need admission and Covid 19 patients are not being admitted to this hospital. He will need transfer to a hospital in [place] for admission. 09/30/19 15:15: I had discussed the findings of the patient's lab tests and x- rays with the patient. I also discussed his need for admission and the need for transfer for that admission and he would want me to discuss his case with the doctors at [facility] in [place]. 09/30/19 15:25: I discussed the patient's case with Dr. Cary, hospitalist at [facility] in [place], and she has agreed to accept the patient in transfer. Will be transferred via ambulance to [facility] in [place] for direct admission. The patient is in agreement with the plans for transfer. Departure - Departure Time of Disposition: 16:40 Disposition: DC/Tfer to [facility] 02 Reason for Transfer *Q: Other (Patient with Covid 19 pneumonia and respiratory failure.) Condition: Fair (Stable) Clinical Impression: Pneumonia due to COVID-19 virus Respiratory failure with hypoxia Qualifiers: Chronicity: acute Qualified Code(s): J96.01 - Acute respiratory failure with hypoxia Referrals: PCP,None [Primary Care Provider] - Sepsis Event Note (ED) - Focused Exam Vital Signs: Vital Signs Temp Pulse Resp BP BP Pulse Ox Pulse Ox 09/30/19 13:55 70 19 150/74 H 93 L 09/30/19 13:40 72 24 H 126/72 92 L 09/30/19 13:25 19 120/60 91 L 09/30/19 13:24 97/61 09/30/19 13:17 122/102 H 09/30/19 13:12 97 09/30/19 13:10 74 17 122/102 H 91 L 09/30/19 12:55 74 23 H 153/79 H 92 L 09/30/19 12:50 37.4 C 74 24 H 162/102 H 90 L - My Orders Last 24 Hours: My Active Orders 09/30/19 13:01 Sodium Chloride 0.9% [Saline Flush] 10 ml FLUSH ASDIRECTED PRN Peripheral IV Insertion Adult [OM.PC] Routine EKG 12 Lead [EK] Routine 09/30/19 13:02 EKG Documentation Completion [RC] ASDIRECTED 09/30/19 13:12 Oxygen Therapy Adult [Oxygen Therapy, ED] [RC] ASDIRECTED 09/30/19 13:13 Nitroglycerin [Nitrostat] 0.4 mg SL Q5M PRN 09/30/19 16:00 Sodium Chloride 0.9% [Normal Saline] 1,000 ml IV ASDIRECTED - Assessment/Plan Last 24 Hours: My Active Orders 09/30/19 13:01 Sodium Chloride 0.9% [Saline Flush] 10 ml FLUSH ASDIRECTED PRN Peripheral IV Insertion Adult [OM.PC] Routine EKG 12 Lead [EK] Routine 09/30/19 13:02 EKG Documentation Completion [RC] ASDIRECTED 09/30/19 13:12 Oxygen Therapy Adult [Oxygen Therapy, ED] [RC] ASDIRECTED 09/30/19 13:13 Nitroglycerin [Nitrostat] 0.4 mg SL Q5M PRN 09/30/19 16:00 Sodium Chloride 0.9% [Normal Saline] 1,000 ml IV ASDIRECTED
[2019-09-30] MEDS ORDERED: Sodium Chloride 0.9% 10 ML Syringe FLUSH PRN (13:01)
[2019-09-30] MEDS ORDERED: Aspirin 81 MG Tab.Chew PO ONE (13:13)
[2019-09-30] MEDS ORDERED: Nitroglycerin 0.4 MG Tab.SL SL PRN (13:13)
[2019-09-30] MEDS ORDERED: Iopamidol 755 Mg/ML 100 ML Bottle IV ONE (14:00)
[2019-09-30 15:42] VITALS: BP 150/74; PULSE 70
[2019-09-30] MEDS ORDERED: Sodium Chloride 0.9% 1,000 ML IV SCH (16:00)
--- NOTE | 2019-09-30 16:02 | CR ---
INDICATION: Chest pain. CHEST, ONE VIEW: AP upright portable view of the chest 09/30/19 was compared with 02/17/17 again revealing evidence of exogenous obesity. The heart is enlarged. The aorta is tortuous with calcification in the arch. Overlying EKG leads are noted. Pulmonary vasculature appears prominent with prominent interstitial markings suggested, compatible with CHF and interstitial lung edema. No gross consolidating pneumonia or definite effusion was seen. IMPRESSION: 1. ASHD with cardiomegaly and probable mild CHF as well as mild interstitial lung edema. 2. Exogenous obesity. MTDD
--- NOTE | 2019-09-30 16:31 | CT ---
INDICATION: Chest pain. Shortness of breath. Low oxygen sats. Question PE. Right arm pain. Pain in back. COMPUTERIZED TOMOGRAPHY ANGIOGRAPHY OF THE CHEST WITH CONTRAST: Spiral 1.25 mm axial sections were obtained through the chest with sagittal and coronal reconstructions utilizing 83 mL Isovue-370 and 3.1 mL/second 09/30/19 and compared with 10/27/16. Total exam DLP was 1067.37 mGy-cm. No evidence of pulmonary emboli could be identified. Focal patchy areas of infiltrate are noted peripherally, bilaterally which can be seen in viral pneumonia such as COVID-19 - correlate clinically. Testing may be warranted. Mediastinal lymphadenopathy is moderate and similar to the previous study. The largest node measured was approximately 20 mm located at the aortopulmonary window. No mediastinal mass was identified. The heart is enlarged. Coronary artery calcification is noted. No pericardial effusion is seen. Small fixed hiatal hernia may be present. Renal fascial thickening is noted, compatible with renocortical scarring, possibly due to previous pyelonephritis - correlate clinically. IMPRESSION: 1. No evidence of PE. 2. Peripheral infiltrates noted compatible with pneumonia. Other etiology difficult to exclude. Possibility of COVID-19 would be a consideration with this pattern. 3. Renal cortical scarring. 4. ASHD with cardiomegaly. 5. Small fixed hiatal hernia. Report was called to Dr. Mcgill at 1445 hours. [facility]
== END 2019-09-30 16:40 ==
LOC: FB.ED 12:47
DX: J96.01 Acute respiratory failure with hypoxia (principal); U07.1 COVID-19; J12.89 Other viral pneumonia; I10 Essential (primary) hypertension; E66.9 Obesity, unspecified; Z68.35 Body mass index [BMI] 35.0-35.9, adult; Z79.82 Long term (current) use of aspirin; Z87.891 Personal history of nicotine dependence
CPT/HCPCS: 36415; 71045; 71275; 80053; 83735; 83880; 84484; 85025; 85610; 85730; 93005; 93010; 96360; 99285; A9270; J7030; Q9967; U0002

== ENCOUNTER 2024-03-23 06:05 | Day surgery (SDC) | payer MEDICARE ==
[2024-03-23] MEDS ORDERED: Ketamine 500 mg/10 ML MDV IV ONE (06:06)
[2024-03-23] MEDS ORDERED: Midazolam 1 MG/ML 2 ML SDV IV ONE (06:06)
[2024-03-23] MEDS ORDERED: Propofol 200 MG/20 ML SDV IV ONE (06:06)
[2024-03-23] MEDS ORDERED: Sodium Chloride 0.9% 10 ML Syringe FLUSH PRN (06:15)
[2024-03-23] MEDS: Lactated Ringers 1,000 ML IV SCH (07:10)
[2024-03-23] MEDS: Simethicone Drops 40 MG/0.6 ML 30 ML Bottle ONE (07:33)
[2024-03-23 09:09] VITALS: BP 142/80; PULSE 51
== END 2024-03-23 09:10 | disposition home or self-care (01) ==
LOC: FB.SDS 06:05
PROVIDERS: ATTEND Surgery
DX: Z12.11 Encounter for screening for malignant neoplasm of colon (principal); R19.5 Other fecal abnormalities; K62.1 Rectal polyp; Z80.0 Family history of malignant neoplasm of digestive organs; I10 Essential (primary) hypertension; Z87.891 Personal history of nicotine dependence; E66.9 Obesity, unspecified; Z68.39 Body mass index [BMI] 39.0-39.9, adult
CPT/HCPCS: 00811; 45384; 45385; 88305; 99100; A9270; J2250; J2704; J3490; J7120